=== PATIENT | female | born 1985 | race Caucasian/White ===

== ENCOUNTER 2018-06-19 10:20 | Day surgery (SDC) | payer MEDICAID, SELFPAY ==
--- NOTE | 2018-06-19 07:58 | W.PM.DSUDISC ---
Discharge Plan Disposition Patient Disposition: HOME Condition: Fair Discharge Details Reason For Visit: GERD Attending Provider: Camila Fisher Primary Care Provider: Diane Dunlap Home Meds and New Rx's Prescriptions: New sucralfate [Carafate] 1 gram tablet 1 gm PO Q6H Qty: 120 RF: 0 Continue venlafaxine 75 MG tablet extended release 24hr 75 mg PO DAILY RF: 0 etonogestrel [Nexplanon] 68 MG implant 68 mg SQ ONCE Qty: 1 RF: 0 multivitamin 1 EACH capsule 1 ea PO DAILY RF: 0 acetaminophen [Mapap Extra Strength] 500 MG tablet 2 tab PO PRN PRNRF: 0 trazodone 150 MG tablet 150 mg PO HS PRNRF: 0 Changed pantoprazole [Protonix] 40 MG tablet,delayed release (DR/EC) 40 mg PO BID Qty: 90 RF: 0 Discontinued alum-mag hydroxide-simeth [Maalox Maximum Strength] 355 ML suspension 15 ml PO Q2H PRN RF: 0 ranitidine HCl 300 MG tablet 300 mg PO HS Qty: 90 RF: 0 Discharge Instructions Instructions: Upper Endoscopy (DC), Diet for Stomach Ulcers and Gastritis (GEN), Gastritis (DC), Esophagitis (DC), How to Stop Smoking (DC) Additional Instructions: Findings: severe inflammation of the stomach and esophagus Follow up : 3-4 weeks Diet: low acid Medications: Stop Zantac Increase Protonix to 2 x a day Start Carafate 1 tab 4 x a day 1. Because there will be medication in your system for the next 24 hours, you may feel a little sleepy. Your coordination will be affected. Therefore: a. Do not drive or operate dangerous equipment for 24 hours. b. Do not drink alcohol beverages for 24 hours (not even beer). c. Plan to go home and rest for the day. 2. Generally there are no restrictions on your activity after a day or so has gone by, but you may feel a bit fatigued for a few days. 3 After you arrive home you may have a light meal and return to a normal diet as you can tolerate it without feeling sick to your stomach. 4. After surgery, you may feel pain or discomfort. This should be only transient, but if it persists please contact your doctor. 5. If there are any questions regarding the findings of your procedure, please feel free to contact your doctor. 6. If you are unable to contact your doctor with a problem, contact the h deysipital at [phone]. 7. Continue all your regular medications unless directed otherwise. I understand the above instructions and have no questions. Signature of Patient or Responsible Adult Escort Date/Time Name of Responsible Adult Escort Signature of Nurse Date/Time Activity:: Activity as Tolerated Diet:: low acid Discharge Orders Discharge Orders: Discharge Order (Routine); Ordered 06/19/18 Ordered By: Camila Fisher
--- NOTE | 2018-06-19 08:01 | PDOC.DSDIS_ITS ---
Discharge Plan Disposition Patient Disposition: HOME Condition: Fair Discharge Details Reason For Visit: GERD Attending Provider: Camila Fisher Primary Care Provider: Diane Dunlap Home Meds and New Rx's Prescriptions: New sucralfate [Carafate] 1 gram tablet 1 gm PO Q6H Qty: 120 RF: 0 Continue venlafaxine 75 MG tablet extended release 24hr 75 mg PO DAILY RF: 0 etonogestrel [Nexplanon] 68 MG implant 68 mg SQ ONCE Qty: 1 RF: 0 multivitamin 1 EACH capsule 1 ea PO DAILY RF: 0 acetaminophen [Mapap Extra Strength] 500 MG tablet 2 tab PO PRN PRNRF: 0 trazodone 150 MG tablet 150 mg PO HS PRNRF: 0 Changed pantoprazole [Protonix] 40 MG tablet,delayed release (DR/EC) 40 mg PO BID Qty: 90 RF: 0 Discontinued alum-mag hydroxide-simeth [Maalox Maximum Strength] 355 ML suspension 15 ml PO Q2H PRN RF: 0 ranitidine HCl 300 MG tablet 300 mg PO HS Qty: 90 RF: 0 Discharge Instructions Instructions: Upper Endoscopy (DC), Diet for Stomach Ulcers and Gastritis (GEN) , Gastritis (DC), Esophagitis (DC), How to Stop Smoking (DC) Additional Instructions: Findings: severe inflammation of the stomach and esophagus Follow up : 3-4 weeks Diet: low acid Medications: Stop Zantac Increase Protonix to 2 x a day Start Carafate 1 tab 4 x a day 1. Because there will be medication in your system for the next 24 hours, you may feel a little sleepy. Your coordination will be affected. Therefore: a. Do not drive or operate dangerous equipment for 24 hours. b. Do not drink alcohol beverages for 24 hours (not even beer). c. Plan to go home and rest for the day. 2. Generally there are no restrictions on your activity after a day or so has gone by, but you may feel a bit fatigued for a few days. 3 After you arrive home you may have a light meal and return to a normal diet as you can tolerate it without feeling sick to your stomach. 4. After surgery, you may feel pain or discomfort. This should be only transient , but if it persists please contact your doctor. 5. If there are any questions regarding the findings of your procedure, please feel free to contact your doctor. 6. If you are unable to contact your doctor with a problem, contact the h deysipital at [phone]. 7. Continue all your regular medications unless directed otherwise. I understand the above instructions and have no questions. Signature of Patient or Responsible Adult Escort Date/Time Name of Responsible Adult Escort Signature of Nurse Date/Time Activity:: Activity as Tolerated Diet:: low acid Discharge Orders Discharge Orders: Discharge Order (Routine); Ordered 06/19/18 Ordered By: Camila Fisher
[2018-06-19 10:43] VITALS: BP 108/66; PULSE 84; RESP 16; TEMP 37.3; O2SAT 96
[2018-06-19] MEDS: Lactated Ringers 1,000 ML 80 ML IV (11:00)
--- NOTE | 2018-06-19 11:55 | STOM_PTH ---
PATIENT: Guera Lorenz LOC: [facility] U#:[id number] AGE/SX: 33/F ROOM: RE06/19/[address]: Camila Fisher MD : 1985 BED: DIS: 06/19/2018 SPEC #: [id number] RECD: 06/19/18 13:14 STATUS: [facility] #: [id number] ELOY: 06/19/18 11:[address]: Camila Fisher DEPT: Surgical Specimen RECD BY: Maria A Doss ENTERED: 06/19/18 13:15 SP TYPE: STOMACH OTHR DR: Diane Dunlap Tissues: 1 - BIOPSY BOWEL 2 - STOMACH BIOPSY 3 - ESOPHAGUS BIOPSY Procedures: GROSS AND MICRO LEVEL 4 IMMUNOPEROXIDASE STAIN Comments: [id number]
[2018-06-19 12:40] VITALS: BP 121/84; PULSE 92; RESP 16; TEMP 37.4; O2SAT 94
--- NOTE | 2018-06-19 13:18 | ROE_ITS ---
REPORT OF OPERATIVE PROCEDURE DATE OF SURGERY May 19, 2018 PREOPERATIVE DIAGNOSES Epigastric pain. Gastroesophageal reflux disease. POSTOPERATIVE DIAGNOSES Severe esophagitis and gastritis. PROCEDURES PERFORMED EGD with biopsies. SEDATION MAC. ANESTHESIA PROVIDER Damien Sharif CRNA SURGEON Paul Fisher M.D. TOOLROOM HELPER None. ESTIMATED BLOOD LOSS Less than 5 cc. SPECIMENS 1. Duodenal biopsies, rule out celiac. 2. Antral ulcer biopsy. 3. H. pylori CLOtest. 4. GE junction biopsies. PREP None. COMPLICATIONS No immediate complications. INDICATIONS Ms. Kim is a 33-year-old with a history of GERD, who has been having increased symptoms on her ome prazole. She was seen in the Emergency Department and switched over [facility] Pro[facility]ix [facility]. She continues to have to take Maalox. The risks, benefits and complications were reviewed her a nd she wished to proceed. No guarantees were given or implied. DESCRIPTION OF PROCEDURES After informed consent was obtained, the patient was taken to the Endoscopy Suite and placed in the l eft decubitus position. Monitors were applied and a time-out was done. The patient's name, date of b irth, procedure type, allergies to medications and metal in her body were all reviewed. A bite-block was placed and the patient was sedated. Once sedated and comfortable, the gastroscope was introduced and advanced through the oropharynx, into the esophagus. The proximal and mid esophagus were normal. In the distal esophagus there was inflammation at the GE junction, which was at 25 centimeters. Th ere was a small hiatal hernia. The scope was advanced through the hernia into the antrum and through the pylorus into the third portion of the duodenum. The duodenum looked fairly normal, biopsies were done to rule out celiac sprue. The scope was retracted back into the stomach and biopsies of the sto mach were done for CLOtest. A couple of small ulcerations were noted and these were also biopsied and sent separately. The scope was retroflexed. The cardia and fundus were normal. The scope was straigh tened and pulled back into the esophagus; biopsies of the GE junction were done. The patient was coug valerie due to her smoking, which made the biopsies at the GE junction quite difficult, but I think I di d get a couple of biopsies. The scope was removed and the patient was woken up and taken back to [facility] in stable condition. Followup in three to four weeks in the office. I will have her take Protonix b.i.d. Stop Mylanta and Zantac and start Carafate q.i.d.
== END 2018-06-19 13:13 | disposition home or self-care (01) ==
LOC: SUR 10:21
PROVIDERS: PCP Nurse Practitioner Family; Visit Provider Surgery
PROC: 0DJ68ZZ Inspection of Stomach, Via Natural or Artificial Opening Endoscopic (ICD-10-PCS; CPT 43235; principal; 2018-06-19 12:00)
DX: R10.13 Epigastric pain (principal); K21.0 Gastro-esophageal reflux disease with esophagitis; K29.70 Gastritis, unspecified, without bleeding; K27.9 Peptic ulcer, site unspecified, unspecified as acute or chronic, without hemorrhage or perforation
CPT/HCPCS: 43239; 88305; 87081; 88361

== ENCOUNTER 2018-07-10 09:23 | Outpatient (CLI) | payer MEDICAID, SELFPAY ==
--- NOTE | 2018-07-10 08:39 | DI.RAD_ITS ---
SYMPTOM/DIAGNOSIS: COUGH, R05, URI, HEMOPTYSIS, FAMILY H/O PNEUMONIA PA AND LATERAL CHEST: Comparison is made with 11/09/17. Heart size and pulmonary vasculature are within normal limits. There are again seen linear infiltrates in the lung bases which appear stable and consistent with scarring. On the lateral view, there are increased infiltrates projected over the anterior heart suggestive of a right middle lobe infiltrate. This may represent atelectasis or pneumonia. No effusions or pneumothoraces are identified. Mild degenerative changes are seen in the spine. IMPRESSION: Right middle lobe infiltrate. This may represent atelectasis or pneumonia.
== END 2018-07-10 09:43 ==
PROVIDERS: PCP Nurse Practitioner Family; Visit Provider Family Medicine
DX: R05 Cough (principal); J06.9 Acute upper respiratory infection, unspecified; R04.2 Hemoptysis
CPT/HCPCS: 71046

== ENCOUNTER 2018-07-28 06:42 | Outpatient (CLI) | payer MEDICAID, SELFPAY ==
[2018-07-28 10:51] LABS: Cholesterol 264 mg/dL (50-200); Glucose 94 mg/dL (70-100); HDL Cholesterol 43 mg/dL (40-60); LDL CHOLESTEROL 174 mg/dL (<100); TSH 3.44 uIU/mL (0.358-3.74); Triglyceride 403 mg/dL (30-150)
== END 2018-07-28 07:02 ==
PROVIDERS: PCP Nurse Practitioner Family; Visit Provider Nurse Practitioner Family
DX: R07.89 Other chest pain (principal); E78.1 Pure hyperglyceridemia
CPT/HCPCS: 36415; 80061; 82947; 83721; 84443

== ENCOUNTER 2019-03-16 15:05 | Outpatient (REF) | payer MEDICAID, SELFPAY ==
--- NOTE | 2019-03-16 14:00 | PAPFT_PTH ---
PATIENT: Guera Lorenz LOC: [facility] U#:[id number] AGE/SX: 34/F ROOM: RE03/16/[address]: NILES Daley : 1985 BED: DIS: 03/16/2019 SPEC #: [id number] RECD: 03/16/19 17:40 STATUS: [facility] #: [id number] ELOY: 03/16/19 14:[address]: Rose Marie Leiva DEPT: [facility] Cytology RECD BY: Maria A Doss ENTERED: 03/16/19 17:40 SP TYPE: PAPFT OTHR DR: Diane Dunlap Tissues: 1 - CX/ENDOCX FOR PAP SMEARS Procedures: PAP THIN PREP/UVM Screening HPV DNA PROBE Comments: [id number]
== END 2019-03-16 15:25 ==
LOC: LBN 15:05
PROVIDERS: PCP Nurse Practitioner Family; Visit Provider Nurse Practitioner Family
DX: Z12.4 Encounter for screening for malignant neoplasm of cervix (principal); Z11.51 Encounter for screening for human papillomavirus (HPV)
CPT/HCPCS: 88142; 87624

== ENCOUNTER 2019-04-03 17:49 | Outpatient (REF) | payer MEDICAID, SELFPAY ==
--- NOTE | 2019-04-03 11:40 | ENDO_PTH ---
PATIENT: Guera Lorenz LOC: [facility] U#:[id number] AGE/SX: 34/F ROOM: RE04/03/[address]: Maycol Alvares MD : 1985 BED: DIS: 04/03/2019 SPEC #: [id number] RECD: 04/06/19 12:25 STATUS: [facility] REQ #: [id number] ELOY: 04/03/19 11:[address]: Maycol Alvares DEPT: Surgical Specimen RECD BY: Lindsay Freedman ENTERED: 04/06/19 12:26 SP TYPE: Endo OTHR DR: LUKAS DaleyP Tissues: 1 - ENDOCERVICAL BX/CURRETTE Procedures: GROSS AND MICRO LEVEL 4 Comments: [id number]
== END 2019-04-03 18:09 ==
LOC: LBN 17:49
PROVIDERS: PCP Nurse Practitioner Family; Visit Provider Obstetrics & Gynecology
DX: N88.8 Other specified noninflammatory disorders of cervix uteri (principal); R87.610 Atypical squamous cells of undetermined significance on cytologic smear of cervix (ASC-US)
CPT/HCPCS: 88305

== ENCOUNTER 2019-10-17 13:38 | Emergency (ER) | payer MEDICAID, SELFPAY ==
[2019-10-17 13:41] VITALS: BP 132/74; PULSE 107; RESP 16; TEMP 36.3; O2SAT 99
--- NOTE | 2019-10-17 14:01 | ED.GENADUL_ITS ---
Discharge Plan Disposition Patient Disposition: HOME Condition: Stable Discharge Details Chief Complaint: Sorethroat Clinical Impression: Acute streptococcal pharyngitis Primary Care Provider: Diane Dunlap ED Provider: Destinee Wong Home Meds and New Rx's Prescriptions: Continued alum-mag hydroxide-simeth [Maalox Advanced] 200-200-20 mg/5 mL suspension 15 ml PO DAILY PRNRF: 0 famotidine [Pepcid] 20 mg tablet 20 mg PO DAILY PRNRF: 0 gabapentin 600 mg tablet 600 mg PO DAILY Qty: 28 RF: 0 Nexplanon 68 MG implant 68 mg SQ ONCE Qty: 1 RF: 0 multivitamin 1 EACH capsule 1 ea PO DAILY RF: 0 acetaminophen [Mapap Extra Strength] 500 MG tablet 2 tab PO PRN PRNRF: 0 ibuprofen 600 mg Tablet 600 mg PO Q6H PRNRF: 0 Discharge Instructions Instructions: Pharyngitis (ED) Additional Instructions: Alternate tylenol and motrin as needed and directed for pain. Drink plenty of fluids and get plenty of rest. Follow-up with your primary care doctor in 1 week. Return to the emergency department with any worsening or new concerning symptoms. Stand Alone Forms: Work Release Discharge Data Discharge Physician: Destinee Wong Medical Decision Making 34-year-old female presents with sore throat since last night. She treated herself with cefuroxime 3 weeks ago for suspected strep throat. Posterior pharynx erythematous with moderate tonsillar edema with minimal exudates. Uvula moderately edematous but midline. No peritonsillar mass. No trismus, drooling, submandibular swelling or lymphadenopathy. Rapid strep positive. Patient offered Bicillin injection and she is agreeable. Dose of Decadron given for pain and swelling. Advised on the importance of rest, fluids and symptomatic treatment. Advised to follow up with the primary care doctor for re-evaluation. Usual and customary return precautions given prior to discharge. Medical Records Medical records reviewed: Yes I reviewed the patient's medical records. HPI General Mode of arrival: ambulatory . Date/Time Provider Initiated Documentation: 10/17/19 13:51 . Limitations to Documentation: no limitations . Information obtained by: patient . History of Present Illness 34 year old F presents to the emergency department with the chief complaint of Sore throat, Patient started experiencing this day(s) (1) and it has been constant. No relieving factors improve symptom(s), No exacerbating factors reported . Patient notes denies chest pain, cough, diaphoresis, fever/chills, headaches, loss of appetite, malaise, nausea/vomiting, rash, seizure, shortness of breath, syncope and weakness. Patient did receive the following treatments prior to arrival, none Related Data Home Medications Medication Instructions Recorded Confirmed acetaminophen [Mapap Extra 2 tab PO PRN PRN 09/22/16 10/17/19 Strength] multivitamin 1 ea PO DAILY 11/09/17 10/17/19 Nexplanon 68 mg SQ ONCE #1 implant 03/07/18 10/17/19 aluminum-mag hydroxide-simethicone 15 ml PO DAILY PRN ml 09/17/18 10/17/19 200 mg-200 mg-20 mg/5 mL oral susp famotidine 20 mg tablet 20 mg PO DAILY PRN 11/18/18 10/17/19 gabapentin 600 mg tablet 600 mg PO DAILY #28 tab 10/14/19 10/17/19 ibuprofen 600 mg PO Q6H PRN 10/17/19 10/17/19 Previous Rx's Medication Instructions Recorded gabapentin 600 mg tablet 600 mg PO DAILY #28 tab 10/14/19 Allergies Allergy/AdvReac Type Severity Reaction Status Date / Time indomethacin AdvReac Mild Per pt. Verified 10/17/19 13:48 medication makes her loopy. promethazine HCl AdvReac Mild MAKES PT. Verified 10/17/19 13:48 [From Phenergan] FORGETFUL/confusion General Stated Complaint: Sorethroat FLORECITA: 4 Review of Systems All systems reviewed & are unremarkable except as noted in HPI and below Constitutional Constitutional: Reports as per HPI, Denies chills and Denies fever(s) Eyes Eyes: Denies blurry vision ENT Ears, Nose, Mouth, and Throat: Denies dizziness, Reports sore throat and Denies throat swelling Cardiovascular Cardiovascular: Denies chest pain and Denies dyspnea Respiratory Respiratory: Denies cough and Denies dyspnea Gastrointestinal Gastrointestinal: Denies abdominal pain, Denies diarrhea and Denies vomiting Genitourinary Genitourinary: Denies hematuria and Denies dysuria Musculoskeletal Musculoskeletal: Denies back pain and Denies numbness Integumentary/Breasts Skin/Breast: Denies lesions and Denies rash Neurologic Neurologic: Denies dizziness, Denies focal weakness and Denies numbness Allergic/Immunologic Allergic/Immunologic: Denies throat swelling [facility] Social History Smoking/Tobacco Use Status: Current every day Tobacco Type: cigarettes Alcohol Intake: never Drug use: Never Substance use type: does not use Pets and animals: Yes Pets and animals: dog(s) Do you feel safe at home: Yes Do you feel safe in your relationship?: Yes History History 1 Para 1 Hx # Term Pregnancies Multiple births Hx # Pregnancies Ectopic pregnancies AB induced Hx Number of Living Children AB spontaneous Exam Const General: cooperative, healthy appearing and no acute distress HENMT Head: normal to inspection Ears: hearing grossly normal bilaterally, external ears normal and TM's normal bilaterally General nose exam: external nose normal Mouth: oral mucosae normal Throat: uvula midline, no peritonsillar masses and posterior oropharynx abnormal edema (Moderate), erythema (Moderate) and exudates (Right-sided) Eyes General: appearance normal, both eyes and all related structures Neck Neck: normal visual inspection, no lymphadenopathy, no meningeal signs, trachea midline and No submandibular swelling Resp Effort & Inspection: normal respiratory effort and able to speak in complete sentences Cardio Rate: regular rate Skin General skin exam: no rashes or lesions noted Neuro General: alert, awake and oriented x3 Motor: muscle tone normal throughout Extrem General: normal to inspection and full ROM Psych Appearance: grossly normal Affect: normal affect Course Vital Signs Vital signs: Vital Signs Temperature 97.3 F L 10/17/19 13:41 Pulse 107 H 10/17/19 13:41 Respiratory Rate 16 10/17/19 13:41 Blood Pressure 132/74 10/17/19 13:41 Pulse Oximetry 99 10/17/19 13:41 Temperature 97.3 F L 10/17/19 13:41 Temperature Source Skin 10/17/19 13:41 Pulse 107 H 10/17/19 13:41 Respiratory Rate 16 10/17/19 13:41 Respiratory Effort Non-Labored 10/17/19 13:52 Blood Pressure 132/74 10/17/19 13:41 Blood Pressure Position Sitting 10/17/19 13:41 Pulse Oximetry 99 10/17/19 13:41 Oxygen Delivery Method Room Air 10/17/19 13:41 Oxygen Flow Rate 0 10/17/19 13:41 Pain Level 8 10/17/19 13:41 Lab/Test Results Lab/Test Results: POC Strep Test-RADHA(Rapid) Start: 10/17/19 13:48 Freq: Status: Active Protocol: Document 10/17/19 13:58 CF (Rec: 10/17/19 13:59 [id number]) Strep test-RADHA(Rapid)-POC POC-Strep test-RADHA (Rapid) Positive POC-Strep test-RADHA (Rapid) Positive
[2019-10-17] MEDS: Dexamethasone 10 MG/ML VIAL PO (14:21)
== END 2019-10-17 14:25 | disposition home or self-care (01) ==
PROVIDERS: Emergency Provider Physician Assistant; PCP Nurse Practitioner Family
DX: J02.9 Acute pharyngitis, unspecified (principal)
CPT/HCPCS: 96372; 99284; 99283; J0561; J1100

== ENCOUNTER 2020-01-04 13:34 | Outpatient (CLI) | payer MEDICAID, SELFPAY ==
[2020-01-06 15:25] LABS: SARS-CoV-2 RNA Undetected (Undetected); SARS-CoV-2 Specimen Source Nasopharynx
== END 2020-01-04 13:54 ==
PROVIDERS: PCP Nurse Practitioner Family; Visit Provider Nurse Practitioner Family
DX: Z20.828 Contact with and (suspected) exposure to other viral communicable diseases (principal); Z11.59 Encounter for screening for other viral diseases; R05 Cough
CPT/HCPCS: U0003

== ENCOUNTER 2020-02-08 15:48 | Outpatient (REF) | payer MEDICAID, SELFPAY ==
[2020-02-09 18:31] LABS: COVID-19 RT-PCR UVMMC Result Negative (Negative)
== END 2020-02-08 16:08 ==
LOC: NCHCN 15:48
PROVIDERS: PCP Nurse Practitioner Family; Visit Provider Nurse Practitioner Family
DX: J02.9 Acute pharyngitis, unspecified (principal); Z20.828 Contact with and (suspected) exposure to other viral communicable diseases
CPT/HCPCS: U0003; 87070

== ENCOUNTER 2020-02-20 15:59 | Emergency (ER) | payer MEDICAID, SELFPAY ==
[2020-02-20 16:03] VITALS: BP 147/100; PULSE 110; RESP 18; TEMP 36.6; O2SAT 98
--- NOTE | 2020-02-20 16:57 | ED.GENADUL_ITS ---
Discharge Plan Disposition Patient Disposition: HOME Condition: Stable Discharge Details Chief Complaint: Cellulitis Clinical Impression: Cellulitis, Cat scratch Primary Care Provider: Diane Dunlap ED Provider: Abby Brewster Home Meds and New Rx's Prescriptions: New sulfamethoxazole-trimethoprim [Bactrim DS] 800-160 mg tablet 1 tab PO BID Qty: 20 RF: 0 cephalexin [Keflex] 500 mg capsule 500 mg PO QID Qty: 40 RF: 0 Continued Nexplanon 68 mg implant 1 implant SBD ONCE Qty: 1 RF: 0 gabapentin 600 mg tablet 600 mg PO DIRECTED Qty: 60 RF: 0 multivitamin 1 EACH capsule 1 ea PO DAILY RF: 0 Discharge Instructions Instructions: Cellulitis (ED) Additional Instructions: Elevate arm for swelling. Use warm compresses. Antibiotics as prescribed. Please plan for ultrasound on Saturday for follow-up. Pending ultrasound results begin daily aspirin 81 mg. Observe for any fevers, chills, increasing redness or swelling or for any worsening pain. Have reevaluation for worsening of your symptoms immediately. Call PCP for recheck in the middle of next week. Expect improvement in the next 2 to 3 days. Return for any worsening, concerns or alarming symptoms sooner if needed as discussed Medical Decision Making This is a 35-year-old patient presenting for concerns of swelling which developed overnight in the right AC. Patient reports mild redness. Patient is nontoxic-appearing and does denies any infectious symptoms at this time. Patient is concerned with history of IV drug use resulting in a necrotic abscess requiring surgical drainage 5 years ago. Patient denies any IV drug use in the last 3 years. Patient concerned if area of her old abscess is developing a new infection. Patient also reports 5 days ago a cat scratch to the dorsal right hand which she questions if this is involved in the developing swelling in her arm. Patient has no significant distal swelling noted of the arm however DVT remains in the differential. Patient has no focal lymph node involvement noted on exam. Patient has no obvious fluctuation in the right AC area but does have mild erythema present. Vital signs reviewed. Patient noted to be hypertensive however she does report this is typical when arriving to the emergency room. She does report feeling anxious regarding being in the emergency room. While evaluating patient palpated pulse which was not notably tachycardic. Again patient does not appear ill, afebrile. reviewed patient's previous surgical notes and culture. Abscess Culture Final 12/09/14-08 Day 1 Result ISOLATES BELOW DAY 1 GROWTH MODERATE GROWTH ISOLATE 1 APPEARANCE GRAM POSITIVE TERRA ISOLATE 1 ACTION SUSCEPTIBILITY TO FOLLOW Organism 1 STAPHYLOCOCCUS AUREUS GROWTH MODERATE GROWTH Stap [place] RESULT Ciprofloxacin S Gentamicin S Trimethoprim/Sulfamethoxazole S Clindamycin S Erythromycin S Oxacillin S Tetracycline S Vancomycin S Unable to get ultrasound at this time. Will order ultrasound for Saturday. Plan to identify for developing abscess as well as DVT in the right arm. Patient agrees with this plan of care. We did discuss prophylactic anticoagulation although I have a low suspicion for DVT will plan to use aspirin daily, patient's preference is to avoid anticoagulants orally at this time unless ultrasound diagnostic of DVT. Regarding the possibility of developing abscess we will plan to use both Bactrim and Keflex for broad-spectrum coverage based on her previous culture and concern of possible cat scratch. Patient raises plan of care. Did perform bedside ultrasound with Dr. Soares revealed mild developing fluid but no focal abscess requiring drainage at this time. Elevation of arm, antibiotic use, warm compresses and daily aspirin recommended. Patient agrees with this plan of care. Precautions of infection and worsening were discussed. Recommended ultrasound on Saturday. Patient agrees this plan of care. Recommended return for worsening. Patient agrees. Again patient is nontoxic-appearing. The patient was stable and requested discharge. Prior to discharge, my usual and customary return precautions were reviewed with the patient - this included follow-up instructions and reasons to return to the Emergency Department if conditions worsens, does not improve as expected, or other new concerns arise. HPI General Date/Time Provider Initiated Documentation: 02/20/20 16:00 . HPI Narrative: This is a 35-year-old patient presenting to the emergency room with complaints of right arm swelling. Patient reports onset overnight mild swelling and redness to the right AC. Patient is reporting a history of IV drug use has a large surgical scar noted from a previous necrotic abscess which required surgical intervention. Patient reports this was 5 years ago. Patient reports she has not used IV drugs in 3 years. Patient denies any fever, chills or ill feeling. Patient was also concerned as she did have a cat scratch to the dorsal aspect of her right hand, vaccinated cat. Patient reports her tetanus is up-to-date. Patient reports cat scratch was 5 days ago. Patient concerned with the possibility of cat scratch infection or development of new infection in the right AC. Patient denies any lower arm swelling. Patient reports very mild discomfort associated. And again denies ill feeling. Patient reports full range of motion of the arm. Denies numbness, tingling or weakness. Denies any diaphoresis, sweats, headache, dizziness. Denies any nausea or vomiting. Denies abdominal pain. Denies any joint swelling. Related Data Home Medications Medication Instructions Recorded Confirmed multivitamin 1 ea PO DAILY 11/09/17 02/20/20 etonogestrel 68 mg subdermal 1 implant SBD ONCE #1 each 02/03/20 02/20/20 implant gabapentin 600 mg tablet 600 mg PO DIRECTED #60 tab 02/15/20 02/20/20 cephalexin [Keflex] 500 mg PO QID #40 cap 02/20/20 sulfamethoxazole-trimethoprim 1 tab PO BID #20 tab 02/20/20 [Bactrim DS] Previous Rx's Medication Instructions Recorded etonogestrel 68 mg subdermal 1 implant SBD ONCE #1 each 02/03/20 implant gabapentin 600 mg tablet 600 mg PO DIRECTED #60 tab 02/15/20 cephalexin [Keflex] 500 mg PO QID #40 cap 02/20/20 sulfamethoxazole-trimethoprim 1 tab PO BID #20 tab 02/20/20 [Bactrim DS] Allergies Allergy/AdvReac Type Severity Reaction Status Date / Time indomethacin AdvReac Mild Per pt. Verified 02/03/20 15:47 medication makes her loopy. promethazine HCl AdvReac Mild MAKES PT. Verified 02/03/20 15:47 [From Phenergan] FORGETFUL/confusion General Stated Complaint: Cellulitis FLORECITA: 3 Review of Systems All systems reviewed & are unremarkable except as noted in HPI and below PFSH Medical History Adult BMI > 30 (Resolved) Anxiety and depression (Acute) Atypical chest pain (Resolved) Bicornate uterus (Chronic) Blood glucose elevated (Resolved) Dizziness (Resolved) Fibrocystic breast (Acute) Gastritis (Resolved) GERD (gastroesophageal reflux disease) (Acute) HLD (hyperlipidemia) (Acute) HPV (human papilloma virus) infection (Resolved) genital warts Hx of abnormal cervical Pap smear (Acute) Hypertriglyceridemia (Resolved) Insomnia (Resolved) Migraines (Acute) Mood disorder (Acute) Myalgia (Resolved) Nexplanon in place (Acute) 02/03/2020 previous device removed new device inserted. Obesity (Acute) Pilonidal cyst (Resolved) Sleep apnea (Acute) Sore throat (Resolved) Substance abuse (Resolved) Opiates & cocaine; in remission since 2013 Tobacco use disorder (Acute) Social History Smoking/Tobacco Use Status: Current every day Alcohol Intake: never Drug use: Never Substance use type: does not use Pets and animals: Yes Pets and animals: dog(s) Do you feel safe at home: Yes Do you feel safe in your relationship?: Yes History History 1 Para 1 Hx # Term Pregnancies Multiple births Hx # Pregnancies Ectopic pregnancies AB induced Hx Number of Living Children AB spontaneous Exam Narrative Exam Narrative: CONST: Healthy appearing patient, in no acute distress. Well hydrated. Alert and oriented. EYES: General normal appearance. Alignment normal. Eyelids normal. Conjunctiva normal. Sclera normal. NECK: Normal visual inspection. FROM. No lymphadenopathy. Trachea midline. No Midline tenderness. CHEST: Normal insepection of the chest. RESP: Normal respiratory effort. Speaking full sentences. No cough. No wheezing. No retractions. CARDIO: No JVD. MUSCULOSKELETAL: Normal Gait. FROM of all extremities. Distal neurovascularly intact. Sensation intact distally. Right arm: Patient has no obvious upper arm swelling or notable lymphangitis of the upper arm. At the right AC patient has a large surgical scar noted, mild fullness just distal to the right AC, no focal fluctuation. Patient has vague developing erythema on the periphery of her surgical scar. Mild warmth. Patient has minimal tenderness with palpation. Full range of motion of the elbow and forearm. Full range of motion of the wrist. No distal swelling noted in the distal forearm wrist or hand. There are multiple scratches noted in the dorsal aspect of the right hand which appear uninfected. Pulse intact. Distal neurovascularly intact SKIN: Normal. Dry. No rashes. See above note NEURO: Alert and awake. Speech clear. Lymph: No noted axillary lymph nodes. No cervical lymphadenopathy present. PSYCH: Normal affect. Cooperative. Course Vital Signs Vital signs: Vital Signs Temperature 36.6 C 02/20/20 16:03 Pulse 110 H 02/20/20 16:03 Respiratory Rate 18 02/20/20 16:03 Blood Pressure 147/100 H 02/20/20 16:03 Pulse Oximetry 98 02/20/20 16:03 Temperature 36.6 C 02/20/20 16:03 Pulse 110 H 02/20/20 16:03 Respiratory Rate 18 02/20/20 16:03 Respiratory Effort 02/20/20 16:08 Blood Pressure 147/100 H 02/20/20 16:03 Blood Pressure Position Sitting 02/20/20 16:03 Pulse Oximetry 98 02/20/20 16:03 Oxygen Delivery Method Room Air 02/20/20 16:03 Oxygen Flow Rate 0 02/20/20 16:03
[2020-02-20] MEDS: Cephalexin 500 MG CAP PO (16:59)
[2020-02-20] MEDS: Sulfameth/Trimeth DS TAB 1 TAB PO (17:00)
== END 2020-02-20 17:05 | disposition home or self-care (01) ==
PROVIDERS: Emergency Provider Physician Assistant; PCP Nurse Practitioner Family
DX: L03.113 Cellulitis of right upper limb (principal); S60.511A Abrasion of right hand, initial encounter; W55.03XA Scratched by cat, initial encounter
CPT/HCPCS: 99283

== ENCOUNTER 2020-02-22 08:44 | Outpatient (CLI) | payer MEDICAID, SELFPAY ==
--- NOTE | 2020-02-22 | DI.US_ITS ---
EXAM: US UPPER EXTREMITY VENOUS RT CLINICAL HISTORY: CELLULITIS, ? DVT OR ABSCESS, H/O CAT SCRATCH 5 DAYS AGO, H/O PREVIOUS. TECHNIQUE: Ultrasound examination of the right upper extremity venous system(s) is performed using g rayscale, color-flow, and spectral Doppler analysis. COMPARISON: No exams were available for comparison FINDINGS: The right internal jugular, axillary, basilic, brachial and visualized portions of the subclavian, ra dial, and ulnar veins are patent without evidence of thrombosis. There is superficial thrombus seen in the cephalic vein. There is a small amount of subcutaneous fluid in the proximal forearm. This m ay represent edema. No focal fluid collection is seen to suggest an abscess. IMPRESSION: 1. No DVT. 2. Superficial thrombophlebitis. 3. No sonographic evidence of an abscess. DATA REPOSITORY:
== END 2020-02-22 09:04 ==
PROVIDERS: PCP Nurse Practitioner Family; Visit Provider Physician Assistant
DX: L03.113 Cellulitis of right upper limb (principal); I82.611 Acute embolism and thrombosis of superficial veins of right upper extremity; R60.0 Localized edema
CPT/HCPCS: 93971

== ENCOUNTER 2020-02-22 14:52 | Emergency (ER) | payer MEDICAID, SELFPAY ==
[2020-02-22 14:56] VITALS: BP 118/84; PULSE 98; RESP 18; TEMP 36.6; O2SAT 100
[2020-02-22 15:01] VITALS: RESP 18
--- NOTE | 2020-02-22 15:36 | ED.GENADUL_ITS ---
Discharge Plan Disposition Patient Disposition: HOME Discharge Details Chief Complaint: GenMedical Clinical Impression: Acute cephalic vein thrombosis Primary Care Provider: Diane Dunlap ED Provider: Ton Tran Home Meds and New Rx's Prescriptions: New Eliquis DVT-PE Treat 30D Start 5 mg (74 tabs) tablets,dose pack See Rx Instructions .ROUTE .COMPLEX Qty: 74 RF: 0 No Action Nexplanon 68 mg implant 1 implant SBD ONCE Qty: 1 RF: 0 gabapentin 600 mg tablet 600 mg PO DIRECTED Qty: 60 RF: 0 multivitamin 1 EACH capsule 1 ea PO DAILY RF: 0 sulfamethoxazole-trimethoprim [Bactrim DS] 800-160 mg tablet 1 tab PO BID Qty: 20 RF: 0 cephalexin [Keflex] 500 mg capsule 500 mg PO QID Qty: 40 RF: 0 Discharge Instructions Instructions: Venous Thromboembolism (ED) Additional Instructions: Eliquis as directed. Please watch for new or worsening symptoms and return to the ER for any concerns. We have placed you on the care management list to help expedite your primary care follow-up through your primary care provider. I do recommend reaching out to their office tomorrow for prompt outpatient reevaluation. Discharge Data Discharge Date/Time-TO BE ENTERED AT DEPARTURE: 02/22/20 16:05 Medical Decision Making <SILVIANO Conner - Last Filed: 02/23/20 18:07> I discussed the case with Dr. Maher. Per current recommendations, superficial thrombophlebitis which is greater than 5 cm does require anticoagulation. I had a long discussion with patient regarding anticoagulation options, she would prefer Eliquis. I will initiate a starter pack for her and we discussed the importance of prompt outpatient follow-up. She will continue taking her antibiotics however there are no signs of current cellulitis. Patient has additional questions or concerns and is comfortable discharge. Medical Records Medical records reviewed: Yes I reviewed the patient's medical records. Lab Data Lab results reviewed: Yes I reviewed the patient's lab results. Lab results narrative: Laboratory Tests Range/Units 02/22/20 02/22/20 02/22/20 16:00 16:00 16:00 WBC (4.4-10.8) k/cumm 9.25 RBC (4.00-5.20) m/cumm 4.58 Hgb (12.0-15.5) g/dL 14.4 Hct (36.0-46.0) % 41.0 MCV (80-95) fL 89.5 MCH (27.0-33.0) pg 31.4 MCHC (32.0-36.0) g/dL 35.1 RDW (11.7-14.6) % 12.8 Plt Count (130-400) x1000/uL 273 MPV (8.0-11.0) fL 9.3 Immature Gran % % 1.2 Neutrophils % 52.5 Lymphocytes % 36.9 Monocytes % 7.0 Eosinophils % 2.3 Basophils % 0.1 Absolute Neutrophils (1.2-6.7) k/cumm 4.86 Absolute Lymphocytes (1.2-3.4) k/cumm 3.41 H Absolute Monocytes (0.11-0.7) k/cumm 0.65 Absolute Eosinophils (0.0-0.7) k/cumm 0.21 Absolute Basophils (0.0-0.2) k/cumm 0.01 PT (9.3-11.0) sec 9.0 L INR (0.9-1.1) 0.9 APTT (21.0-31.4) sec 25.8 Sodium (136-145) mmol/L 136 Potassium (3.5-5.1) mmol/L 4.3 Chloride (98-107) mmol/L 104 Carbon Dioxide (21.0-32.0) mmol/L 25.4 Anion Gap (3-11) mmol/L 6.6 BUN (7-18) mg/dL 14 Creatinine (0.55-1.02) mg/dL 0.90 Estimated GFR/1.73 m2 (mL/min/1.73m2) >= 60.00 Glucose (74-106) mg/dL 92 Calcium (8.5-10.1) mg/dL 9.0 Total Bilirubin (0.2-1.0) mg/dL 0.2 AST (15-37) U/L 12 L ALT (14-59) U/L 28 Alkaline Phosphatase (46-116) U/L 55 Total Protein (6.4-8.2) g/dL 6.9 Albumin (3.4-5.0) g/dL 3.7 <Vicki Maher MD - Last Filed: 02/23/20 07:38> I, Vicki Maher, have seen and examined the patient and agree with the history and physical as per the PA. Please refer to their note. Concern for superficial thrombophlebitis extending greater than 5 cm, per current recommendations plan for anticoagulation with Eliquis. Patient continues to take antibiotics for cellulitis. No evidence of active/resistant infection on exam. Exam/history is not consistent with pulmonary embolism, sepsis, necrotizing fasciitis, abscess, other acute emergent life-threatening process. I had a lengthy discussion with Patient regarding return to emergency department precautions, home care, and importance of outpatient follow-up. Pt ve rbalizes understanding of the plan and is amenable. Patient discharged to home with clear plan for outpatient follow-up. All questions were answered. Disposition decision was made weighing the risks and benefits of hospitalization versus outpatient treatment, the risk for further decompensation, and the patient's wishes. Medical Records Medical records reviewed: Yes I reviewed the patient's medical records. Lab Data Lab results reviewed: Yes I reviewed the patient's lab results. HPI <SILVIANO Conner - Last Filed: 02/23/20 18:07> General Mode of arrival: ambulatory . Date/Time Provider Initiated Documentation: 02/22/20 15:19 . Limitations to Documentation: no limitations . Information obtained by: patient . HPI Narrative: 35-year-old female who is presenting to the ER today for results of her ultrasound. She was evaluated over the weekend for right arm swelling and discomfort, was placed on antibiotic for possible cellulitis, and set up for outpatient ultrasound today. She reports her arm actually feels better than it did, there is no redness, and only a small area of firmness. Mild discomfort. No numbness, tingling, weakness, chest pain, shortness of breath or fever. She reports that she is a former IV drug user but has been clean for 3 years. She denies any history of DVT or PE to me. I discussed the findings with radiology, ultrasound reveals no DVT however there is superficial thrombophlebitis of the cephalic vein measuring greater than 5 cm. Related Data Home Medications Medication Instructions Recorded Confirmed multivitamin 1 ea PO DAILY 11/09/17 02/22/20 etonogestrel 68 mg subdermal 1 implant SBD ONCE #1 each 02/03/20 02/22/20 implant gabapentin 600 mg tablet 600 mg PO DIRECTED #60 tab 02/15/20 02/22/20 cephalexin [Keflex] 500 mg PO QID #40 cap 02/20/20 02/22/20 sulfamethoxazole-trimethoprim 1 tab PO BID #20 tab 02/20/20 02/22/20 [Bactrim DS] apixaban [Eliquis DVT-PE Treat 30D See Rx Instructions .ROUTE 02/22/20 Start] .COMPLEX #74 dose pk Previous Rx's Medication Instructions Recorded etonogestrel 68 mg subdermal 1 implant SBD ONCE #1 each 02/03/20 implant gabapentin 600 mg tablet 600 mg PO DIRECTED #60 tab 02/15/20 cephalexin [Keflex] 500 mg PO QID #40 cap 02/20/20 sulfamethoxazole-trimethoprim 1 tab PO BID #20 tab 02/20/20 [Bactrim DS] apixaban [Eliquis DVT-PE Treat 30D See Rx Instructions .ROUTE 02/22/20 Start] .COMPLEX #74 dose pk Allergies Allergy/AdvReac Type Severity Reaction Status Date / Time indomethacin AdvReac Mild Per pt. Verified 02/22/20 15:04 medication makes her loopy. promethazine HCl AdvReac Mild MAKES PT. Verified 02/22/20 15:04 [From Phenergan] FORGETFUL/confusion General Stated Complaint: GenMedical FLORECITA: 3 Review of Systems <SILVIANO Conner - Last Filed: 02/23/20 18:07> Constitutional Constitutional: Denies fever(s) Cardiovascular Cardiovascular: Denies chest pain and Denies dyspnea Respiratory Respiratory: Denies dyspnea Musculoskeletal Musculoskeletal: Denies numbness and Denies tingling Integumentary/Breasts Skin/Breast: Denies erythema Neurologic Neurologic: Denies numbness and Denies tingling PFSH <SILVIANO Conner - Last Filed: 02/23/20 18:07> Medical History Adult BMI > 30 (Resolved) Anxiety and depression (Acute) Atypical chest pain (Resolved) Bicornate uterus (Chronic) Blood glucose elevated (Resolved) Dizziness (Resolved) Fibrocystic breast (Acute) Gastritis (Resolved) GERD (gastroesophageal reflux disease) (Acute) HLD (hyperlipidemia) (Acute) HPV (human papilloma virus) infection (Resolved) genital warts Hx of abnormal cervical Pap smear (Acute) Hypertriglyceridemia (Resolved) Insomnia (Resolved) Migraines (Acute) Mood disorder (Acute) Myalgia (Resolved) Nexplanon in place (Acute) 02/03/2020 previous device removed new device inserted. Obesity (Acute) Pilonidal cyst (Resolved) Sleep apnea (Acute) Sore throat (Resolved) Substance abuse (Resolved) Opiates & cocaine; in remission since 2014 Tobacco use disorder (Acute) Surgical History Arthroplasty of knee (12/07/14) Cholecystectomy (02/26/11) I&D, abscess rgt arm Family History Mother Substance abuse Meth Mental disorder Depression, anxiety, & PTSD Neoplasm Cervical, lung and rectal CA Father Substance abuse EtOH Heart disease Afib Son Mental disorder Depression Grandmother Neoplasm Breast CA dx'ed 50s Social History Smoking/Tobacco Use Status: Current every day Alcohol Intake: never Drug use: Never Substance use type: does not use Pets and animals: Yes Pets and animals: dog(s) Do you feel safe at home: Yes Do you feel safe in your relationship?: Yes History History 1 Para 1 Hx # Term Pregnancies Multiple births Hx # Pregnancies Ectopic pregnancies AB induced Hx Number of Living Children AB spontaneous Exam <SILVIANO Conner - Last Filed: 02/23/20 18:07> Const General: cooperative, healthy appearing, comfortable and no acute distress Orientation: alert, awake and oriented x3 HENMT Head: normal to inspection, normocephalic and atraumatic Mouth: moist mucous membranes Eyes Conjunctivae: conjunctivae normal Neck Neck: normal visual inspection, trachea midline and supple Resp Effort & Inspection: normal respiratory effort and able to speak in complete sentences Auscultation: clear to auscultation bilaterally Cardio Rate: regular rate Rhythm: regular rhythm Skin General skin exam: no rashes or lesions noted Neuro General: patient alert, patient awake, moves all extremities and no focal motor deficits Sensory Exam: no sensory deficits noted Extrem Right upper extremity: full ROM, normal capillary refill and elbow/forearm Details: normal ROM, distal pulses intact and other (Induration, antecubital region); no tenderness and no swelling Psych Appearance: grossly normal Mental Status: mental status grossly normal Course <SILVIANO Conner - Last Filed: 02/23/20 18:07> Vital Signs Vital signs: Vital Signs Temperature 36.6 C 02/22/20 14:56 Pulse 98 H 02/22/20 14:56 Respiratory Rate 18 02/22/20 14:56 Blood Pressure 118/84 02/22/20 14:56 Pulse Oximetry 100 02/22/20 14:56 Temperature 36.6 C 02/22/20 14:56 Temperature Source Temporal Artery Scan 02/22/20 14:56 Pulse 98 H 02/22/20 14:56 Respiratory Rate 18 02/22/20 15:01 Respiratory Effort Non-Labored 02/22/20 15:01 Respiratory Depth Normal 02/22/20 15:01 Respiratory Pattern Normal 02/22/20 15:01 Blood Pressure 118/84 02/22/20 14:56 Blood Pressure Position Sitting 02/22/20 14:56 Pulse Oximetry 100 02/22/20 14:56 Oxygen Delivery Method Room Air 02/22/20 14:56 Oxygen Flow Rate 0 02/22/20 14:56 Pain Level 2 02/22/20 14:56
--- NOTE | 2020-02-22 15:40 | NUR.NOTE ---
Nursing Note: Referral faxed to PCP
[2020-02-22 16:16] LABS: Abs Immature Grans 0.11 k/cumm (0.0-0.09); Absolute Basophil Count 0.01 k/cumm (0.0-0.2); Absolute Eosinophil Count 0.21 k/cumm (0.0-0.7); Absolute Lymphocyte Count 3.41 k/cumm (1.2-3.4); Absolute Monocyte Count 0.65 k/cumm (0.11-0.7); Absolute Neutrophil Count 4.86 k/cumm (1.2-6.7); Basophils % 0.1; Eosinophils % 2.3; HGB 14.4 g/dL (12.0-15.5); Immature Grans % 1.2 %; Lymphocytes % 36.9; Mean Corp. HGB Concentration 35.1 g/dL (32.0-36.0); Mean Corpuscular Hemoglobin 31.4 pg (27.0-33.0); Mean Corpuscular Volume 89.5 fL (80-95); Mean Platelet Volume 9.3 fL (8.0-11.0); Neutrophils % 52.5; Platelet Count 273 x1000/uL (130-400); RBC 4.58 m/cumm (4.00-5.20); RBC Distribution Width 12.8 % (11.7-14.6); White Blood Cell Count 9.25 k/cumm (4.4-10.8)
[2020-02-22 16:30] LABS: ALT 28 U/L (14-59); AST 12 U/L (15-37); Albumin 3.7 g/dL (3.4-5.0); Alkaline Phosphatase 55 U/L (46-116); Anion Gap 6.6 mmol/L (3-11); BUN 14 mg/dL (7-18); Bilirubin, Total 0.2 mg/dL (0.2-1.0); CO2 25.4 mmol/L (21.0-32.0); Chloride 104 mmol/L (98-107); Glucose 92 mg/dL (74-106); Potassium 4.3 mmol/L (3.5-5.1); Sodium 136 mmol/L (136-145); Total Protein 6.9 g/dL (6.4-8.2)
[2020-02-22 16:32] LABS: INR 0.9 (0.9-1.1); PTT Activated 25.8 sec (21.0-31.4)
== END 2020-02-22 16:05 | disposition home or self-care (01) ==
PROVIDERS: Emergency Provider Physician Assistant; PCP Nurse Practitioner Family
DX: I80.8 Phlebitis and thrombophlebitis of other sites (principal); F11.21 Opioid dependence, in remission; F14.11 Cocaine abuse, in remission; R22.31 Localized swelling, mass and lump, right upper limb
CPT/HCPCS: 36415; 80053; 99283; 85025; 85610; 85730

== ENCOUNTER 2021-01-09 08:52 | Emergency (ER) | payer MEDICAID, SELFPAY ==
[2021-01-09 09:08] VITALS: BP 120/81; PULSE 126; RESP 16; TEMP 36.5; O2SAT 94
--- NOTE | 2021-01-09 09:28 | ED.GENADUL_ITS ---
Discharge Plan Disposition Patient Disposition: HOME Condition: Stable Discharge Details Clinical Impression: Cellulitis of left leg without foot, Active intravenous drug use Primary Care Provider: Diane Dunlap ED Provider: Anna Hui Home Meds and New Rx's Prescriptions: New sulfamethoxazole-trimethoprim [Bactrim DS] 800-160 mg tablet 1 tab PO BID 7 Days Qty: 14 RF: 0 cephalexin 500 mg tablet 500 mg PO BID 7 Days Qty: 14 RF: 0 Continued methadone 10 mg tablet 100 mg PO DAILY RF: 0 gabapentin 300 mg capsule 300 mg PO DAILY PRN (Reason: headaches) Qty: 7 RF: 0 Nexplanon 68 mg implant 1 implant SBD ONCE Qty: 1 RF: 0 multivitamin 1 EACH capsule 1 ea PO DAILY RF: 0 Discharge Instructions Instructions: Cellulitis (ED) Additional Instructions: Continue antibiotics adjusted 3 days to kick in. Return to the ED if extending redness beyond the markings, fever, myalgias, worsening pain. Follow up with primary care provider in 3-5 days. Return to ED sooner if any worsening or concerns. Increase oral fluids. Please take Tylenol or Ibuprofen with food every 4-6 hours as needed for pain and swelling. Referrals: Diane Dunlap [Primary Care Provider] - Discharge Data Discharge Date/Time-TO BE ENTERED AT DEPARTURE: 01/09/21 10:18 Medical Decision Making 35-year-old female presents the ER chief complaint of left lower extremity cellulitis after injecting cocaine on Saturday night. Patient states she then began with increased redness starting Saturday morning, increased pain, she did feel like she had a fever last night. She also reports she had some nausea and vomiting since last night. She has been taking a friend Bactrim and cefuroxime which she states has improved her symptoms. She also endorses Ritalin and Adderall due to being stressed out for an upcoming move. She has a past medical history of anxiety and depression, gastritis, GERD, migraines, mood disorder. She does get 100 mg of methadone dose at the [facility] which she was there this morning. Discussed option for IV, blood work IV antibiotics and rehydration with IV fluids. Patient opted to have oral antibiotics, Zofran orally and attempt with fluid rehydration. Patient placed on Bactrim and cephalexin for 7 days instructed on strict return instructions, verbalized understanding. Erythema was measured and marked by hourly sales staff discussed to return if extends above the markings. HPI General Mode of arrival: ambulatory . Date/Time Provider Initiated Documentation: 01/09/21 09:11 . Limitations to Documentation: no limitations . Information obtained by: patient, RN notes reviewed and old records reviewed . HPI Narrative: 35-year-old female presents the ER chief complaint of left lower extremity cellulitis after injecting cocaine on Saturday night. Patient states she then began with increased redness starting Saturday morning, increased pain, she did feel like she had a fever last night. She also reports she had some nausea and vomiting since last night. She has been taking a friend Bactrim and cefuroxime which she states has improved her symptoms. She also endorses Ritalin and Adderall due to being stressed out for an upcoming move. She has a past medical history of anxiety and depression, gastritis, GERD, migr aines, mood disorder. She does get 100 mg of methadone dose at the [facility] clinic which she was there this morning. Related Data Home Medications Medication Instructions Recorded Confirmed multivitamin 1 ea PO DAILY 11/09/17 01/09/21 etonogestrel 68 mg subdermal 1 implant SBD ONCE #1 each 02/03/20 01/09/21 implant methadone 10 mg tablet 100 mg PO DAILY tab 01/02/21 01/09/21 gabapentin 300 mg capsule 300 mg PO DAILY PRN #7 cap 01/03/21 01/09/21 cephalexin 500 mg PO BID 7 Days #14 tab 01/09/21 sulfamethoxazole-trimethoprim 1 tab PO BID 7 Days #14 tab 01/09/21 [Bactrim DS] Previous Rx's Medication Instructions Recorded etonogestrel 68 mg subdermal 1 implant SBD ONCE #1 each 02/03/20 implant gabapentin 300 mg capsule 300 mg PO DAILY PRN #7 cap 01/03/21 cephalexin 500 mg PO BID 7 Days #14 tab 01/09/21 sulfamethoxazole-trimethoprim 1 tab PO BID 7 Days #14 tab 01/09/21 [Bactrim DS] Allergies Allergy/AdvReac Type Severity Reaction Status Date / Time indomethacin AdvReac Mild Per pt. Verified 01/09/21 09:21 medication makes her loopy. promethazine HCl AdvReac Mild MAKES PT. Verified 01/09/21 09:21 [From Phenergan] FORGETFUL/confusion General Stated Complaint: RashLesion FLORECITA: 3 Review of Systems All systems reviewed & are unremarkable except as noted in HPI and below Musculoskeletal Musculoskeletal: Reports as per HPI, Reports myalgias and Reports radiating pain into limb (Left lateral erythema, tenderness after report of injection of cocaine) PFSH Medical History Anxiety and depression Atypical chest pain Bicornate uterus Blood glucose elevated Dizziness Fibrocystic breast Gastritis GERD (gastroesophageal reflux disease) HLD (hyperlipidemia) HPV (human papilloma virus) infection genital warts Hx of abnormal cervical Pap smear Hypertriglyceridemia Insomnia Migraines Mood disorder Myalgia Nexplanon in place 02/03/2020 previous device removed new device inserted. Obesity Pilonidal cyst Sleep apnea Sore throat Substance abuse Opiates & cocaine; in remission since fall 2019 Tobacco use disorder Surgical History Arthroplasty of knee (12/07/14) Cholecystectomy (02/26/11) I&D, abscess rgt arm Family History Mother Substance abuse Meth Mental disorder Depression, anxiety, & PTSD Neoplasm Cervical, lung and rectal CA Father Substance abuse EtOH Heart disease Afib Son Mental disorder Depression Grandmother Neoplasm Breast CA dx'ed 50s Social History Smoking/Tobacco Use Status: Current every day Tobacco Type: cigarettes Smoking risk assessment performed?: Yes Alcohol Intake: never Drug use: Occasionally Substance use type: crack/cocaine Household members: children Housing: apartment Pets and animals: Yes Pets and animals: dog(s) What type of physical activity do you participate in: walking Seatbelt use: always Do you feel safe at home: Yes Do you feel safe in your relationship?: Yes History History 1 Para 1 Hx # Term Pregnancies Multiple births Hx # Pregnancies Ectopic pregnancies AB induced Hx Number of Living Children AB spontaneous Exam Extrem Left lower extremity: knee (See diagram below) Details: abnormal to inspection, tenderness, normal ROM and warmth Knee images: 1. Erythema, warmth 2. Puncture darline 3. Erythema Course Vital Signs Vital signs: Vital Signs Temperature 36.5 C 01/09/21 09:08 Pulse 126 H 01/09/21 09:08 Respiratory Rate 16 01/09/21 09:08 Blood Pressure 120/81 01/09/21 09:08 Pulse Oximetry 94 01/09/21 09:08 Temperature 36.5 C 01/09/21 09:08 Temperature Source Skin 01/09/21 09:08 Pulse 126 H 01/09/21 09:08 Respiratory Rate 16 01/09/21 09:08 Blood Pressure 120/81 01/09/21 09:08 Blood Pressure Position Sitting 01/09/21 09:08 Pulse Oximetry 94 01/09/21 09:08 Oxygen Delivery Method Room Air 01/09/21 09:08 Oxygen Flow Rate 0 01/09/21 09:08 Pain Level 3 01/09/21 09:08 Comment 01/09/21 09:08
[2021-01-09] MEDS: Ondansetron O.D.T. 4 MG TABEF, 3 TABS/BTL PO (09:36)
[2021-01-09] MEDS: Cephalexin 500 MG CAP PO (09:37)
[2021-01-09] MEDS: Sulfameth/Trimeth DS TAB 1 TAB PO (09:37)
[2021-01-09] MEDS: Ondansetron O.D.T. 4 MG TABEF PO (09:37)
[2021-01-09] MEDS: cefTRIAXone 500 MG VIAL IM (09:50)
== END 2021-01-09 10:18 | disposition home or self-care (01) ==
PROVIDERS: Emergency Provider Registered Nurse Emergency; PCP Nurse Practitioner Family
DX: L03.116 Cellulitis of left lower limb (principal)
CPT/HCPCS: 99283; 99282; J0696

== ENCOUNTER 2021-01-10 21:38 | Inpatient (IN) | payer MEDICAID, SELFPAY ==
[2021-01-10 21:45] VITALS: BP 126/83; PULSE 101; RESP 16; TEMP 36.6; O2SAT 99
--- NOTE | 2021-01-10 21:49 | ED.GENADUL_ITS ---
Discharge Plan Disposition Patient Disposition: [facility] INPATIENT Condition: Stable Discharge Details Clinical Impression: Cellulitis and abscess of left leg Primary Care Provider: Diane Dunlap ED Provider: Anna Hui Home Meds and New Rx's Prescriptions: No Action methadone 10 mg tablet 100 mg PO DAILY RF: 0 gabapentin 300 mg capsule 300 mg PO DAILY PRN (Reason: headaches) Qty: 7 RF: 0 Nexplanon 68 mg implant 1 implant SBD ONCE Qty: 1 RF: 0 multivitamin 1 EACH capsule 1 ea PO DAILY RF: 0 sulfamethoxazole-trimethoprim [Bactrim DS] 800-160 mg tablet 1 tab PO BID 7 Days Qty: 14 RF: 0 cephalexin 500 mg tablet 500 mg PO BID 7 Days Qty: 14 RF: 0 Medical Decision Making 35-year-old female presents the ER for second time in 48 hours with a recheck of her left lower extremity cellulitis. She was seen by myself yesterday after reporting injecting cocaine into the lateral left knee. She did have some surrounding erythema measuring approximately 9 cm x 9 cm. Today she presents with increasing erythema, which extends up to her posterior mid thigh and down t he distal part of her calf, myalgias and not feeling well. She reports taking Tylenol and ibuprofen alternating every 4 hours. She did take her a.m. dose of the cephalexin and Bactrim. She does have a past medical history of IV drug abuse, depression, hyperlipidemia, mood disorder, opioid dependency, GERD, sleep apnea, thrombosis of right upper extremity. She denies using any other illicit substances today she did get her methadone dose this morning. At this time work-up ordered including CBC, CMP, lactate, blood cultures x2, CRP. White blood cell count shows mild elevation at 11.86, absolute neutrophils 8.79 lactate 0.8 which is within normal limits CMP is largely within normal limits, C-reactive protein is 20.2. At this time I recommend admission for worsening cellulitis due to the significant spread in a short period time. Discussed possible admission for IV antibiotics with patient she is agreeable at this time. 2008: Discussed patient case in details with hospitalist Dr. Peng for worsening cellulitis he agrees that patient for admission for observation and IV antibiotics he does recommend vancomycin in addition to the cefazolin at this time. I will discuss plan of care with patient. Medical Records Medical records reviewed: Yes I reviewed the patient's medical records. Lab Data Lab results reviewed: Yes I reviewed the patient's lab results. HPI General Mode of arrival: ambulatory . Date/Time Provider Initiated Documentation: 01/10/21 21:39 . Limitations to Documentation: no limitations . Information obtained by: patient, RN notes reviewed and old records reviewed . HPI Narrative: 35-year-old female presents the ER for second time in 48 hours with a recheck of her left lower extremity cellulitis. She was seen by myself yesterday after reporting injecting cocaine into the lateral left knee. She did have some surrounding erythema measuring approximately 9 cm x 9 cm. Today she presents with increasing erythema, which extends up to her posterior mid thigh and down the distal part of her calf, myalgias and not feeling well. She reports taking Tylenol and ibuprofen alternating every 4 hours. She did take her a.m. dose of the cephalexin and Bactrim. She does have a past medical history of IV drug abuse, depression, hyperlipidemia, mood disorder, opioid dependency, GERD, sleep apnea, thrombosis of right upper extremity. She denies using any other illicit substances today she did get her methadone dose this morning. Related Data Home Medications Medication Instructions Recorded Confirmed multivitamin 1 ea PO DAILY 11/09/17 01/09/21 etonogestrel 68 mg subdermal 1 implant SBD ONCE #1 each 02/03/20 01/09/21 implant methadone 10 mg tablet 100 mg PO DAILY tab 01/02/21 01/09/21 gabapentin 300 mg capsule 300 mg PO DAILY PRN #7 cap 01/03/21 01/09/21 cephalexin 500 mg PO BID 7 Days #14 tab 01/09/21 sulfamethoxazole-trimethoprim 1 tab PO BID 7 Days #14 tab 01/09/21 [Bactrim DS] Previous Rx's Medication Instructions Recorded etonogestrel 68 mg subdermal 1 implant SBD ONCE #1 each 02/03/20 implant gabapentin 300 mg capsule 300 mg PO DAILY PRN #7 cap 01/03/21 cephalexin 500 mg PO BID 7 Days #14 tab 01/09/21 sulfamethoxazole-trimethoprim 1 tab PO BID 7 Days #14 tab 01/09/21 [Bactrim DS] Allergies Allergy/AdvReac Type Severity Reaction Status Date / Time indomethacin AdvReac Mild Per pt. Verified 01/09/21 09:21 medication makes her loopy. promethazine HCl AdvReac Mild MAKES PT. Verified 01/09/21 09:21 [From Phenergan] FORGETFUL/confusion General FLORECITA: 3 Review of Systems Narrative: Constitutional: Negative for weight loss, alert and oriented, well groomed, normal body habitus, appears comfortable. HEENT: Denies trauma, headaches, blurry vision, nasal discharge, sore throat, trouble swallowing. Chest: Denies chest pain, palpitations, irregular rhythm, hypertension. Respiratory: Denies Shortness of breath, cough, hemoptysis. GI: Denies abdominal pain, nausea, vomiting, diarrhea, constipation. : Denies dysuria, hematuria, flank pain, rectal bleeding. Musculoskeletal: Worsening redness and pain to her left lower extremity. Neuro: Denies dizziness, blurry vision, weakness, syncope, headache or facial numbness. Hematologic: Denies easy bruising, intolerance to heat or cold, hair loss. [facility] Medical History Anxiety and depression Atypical chest pain Bicornate uterus Blood glucose elevated Dizziness Fibrocystic breast Gastritis GERD (gastroesophageal reflux disease) HLD (hyperlipidemia) HPV (human papilloma virus) infection genital warts Hx of abnormal cervical Pap smear Hypertriglyceridemia Insomnia Migraines Mood disorder Myalgia Nexplanon in place 02/03/2020 previous device removed new device inserted. Obesity Pilonidal cyst Sleep apnea Sore throat Substance abuse Opiates & cocaine; in remission since fall 2019 Tobacco use disorder Surgical History Arthroplasty of knee (12/07/14) Cholecystectomy (02/26/11) I&D, abscess rgt arm Family History Mother Substance abuse Meth Mental disorder Depression, anxiety, & PTSD Neoplasm Cervical, lung and rectal CA Father Substance abuse EtOH Heart disease Afib Son Mental disorder Depression Grandmother Neoplasm Breast CA dx'ed 50s Social History Smoking/Tobacco Use Status: Current every day Tobacco Type: cigarettes Smoking risk assessment performed?: Yes Alcohol Intake: never Drug use: Occasionally Substance use type: crack/cocaine Household members: children Housing: apartment Pets and animals: Yes Pets and animals: dog(s) What type of physical activity do you participate in: walking Seatbelt use: always Do you feel safe at home: Yes Do you feel safe in your relationship?: Yes History History 1 Para 1 Hx # Term Pregnancies Multiple births Hx # Pregnancies Ectopic pregnancies AB induced Hx Number of Living Children AB spontaneous Exam Narrative Exam Narrative: Constitutional: Alert and oriented x3. Appears stated age. Normal body habitus. Head: Normocephalic, no trauma. Eyes: Pupils PERRLA, Red reflex noted, EOM's intact. Eyelids symmetrical without lesions, discharge, or swelling. ENT: Bilateral TM's WNL, External ear normal to inspection, no mastoid TTP, swelling, or erythema, Nasal turbinates WNL, no nasal discharge. Normal dentition, Posterior pharynx WNL, no exudate. Chest: RRR, Normal S1, S2, distal pulses intact. Resp: Lungs clear to auscultation bilaterally, no wheezes, rales, or rhonchi. Musculoskeletal: Normal gait, 5/5 strength to all four extremities. Skin: See extremity diagram below. capillary refill less than 2 sec. Neurologic: Cranial nerves II-XII intact. Alert and oriented x 3. DTR's intact. Hematologic/Lymphatic: No ecchymosis, no lymphadenopathy. Extrem Upper/lower leg/hip images: 1. Erythema 2. Erythema
[2021-01-10] MEDS: Normal Saline 1,000 ML 1000 ML IV (22:15)
[2021-01-10 22:22] LABS: Lactate 0.8 mmol/L (0.6-1.4)
[2021-01-10 22:26] LABS: Abs Immature Grans 0.05 10^3/uL (0.0-0.06); Absolute Basophil Count 0.04 10^3/uL (0.0-0.2); Absolute Eosinophil Count 0.15 10^3/uL (0.0-0.7); Absolute Lymphocyte Count 2.03 10^3/uL (1.2-3.4); Absolute Monocyte Count 0.81 10^3/uL (0.1-0.8); Absolute Neutrophil Count 8.79 10^3/uL (1.2-6.7); Basophils % 0.3; Eosinophils % 1.3; HCT 39.3 % (36.0-46.0); HGB 13.5 g/dL (11.2-15.7); Immature Grans % 0.4; Lymphocytes % 17.1; MCH 30.5 pg (27.0-33.0); MCHC 34.4 % (32.0-36.0); MCV 88.9 fL (80-95); Monocytes % 6.8; Neutrophils % 74.1; Nucleated RBC 0 %; Platelet Count 237 10^3/uL (130-400); RBC 4.42 10^6/uL (3.93-5.22); RDW 12.2 % (11.7-14.6); RDW-SD 39.7 fL; WBC 11.86 10^3/uL (4.4-10.8)
[2021-01-10 22:39] LABS: ALT 28 U/L (14-59); AST 15 U/L (15-37); Albumin 3.7 g/dL (3.4-5.0); Alkaline Phosphatase 83 U/L (46-116); Anion Gap 9.3 mmol/L (3-11); BUN 18 mg/dL (7-18); Bilirubin, Total 0.3 mg/dL (0.2-1.0); C-Reactive Protein 20.82 mg/dL (0.0-0.3); CO2 26.7 mmol/L (21.0-32.0); CREATININE 0.9 mg/dL (0.55-1.02); Calcium 10.3 mg/dL (8.5-10.1); Chloride 102 mmol/L (98-107); Glucose 95 mg/dL (74-106); Magnesium 2.2 mg/dL (1.8-2.4); Potassium 4.2 mmol/L (3.5-5.1); Sodium 138 mmol/L (136-145); Total Protein 7.5 g/dL (6.4-8.2)
[2021-01-10] MEDS: ceFAZolin 1 GM/50 ML BAG IVPB (23:06)
[2021-01-10 23:25] LABS: Source Nasal/Nares
--- NOTE | 2021-01-10 23:26 | W.PM.HP.N ---
Date of service: 01/10/21 Time of Service: 23:26 Assessment and Plan Assessment and plan (1) Cellulitis and abscess of left leg: Start date: 01/10/21 Status: Acute Assessment and plan: This is a 35-year-old lady who injected her left lateral knee with cocaine 48 hours prior to admission with resulting local cellulitis and now more diffuse cellulitis with rapid progression over her left lower extremity. She has failed outpatient therapy with Bactrim DS and Keflex. She will be started on vancomycin and Ancef for IV therapy of her acute progression. She is noted marked improvement overnight. She continues to have induration over the left lateral calf but less induration of her thigh and decreased erythema overall. She has had no fever. She may be on IV antibiotic for at least 48 hours and then consider conversion to oral therapy depending on whether her blood cultures are positive which should guide antibiotic therapy. (2) Active intravenous drug use: Status: Chronic Assessment and plan: Patient needs increased counseling on IV drug use with increased risk having had a DVT in her right upper extremity in the past and now with injection site cellulitis and complications. (3) Polysubstance abuse: Status: Chronic Assessment and plan: Continue counseling at methadone clinic and personal counseling may be helpful. (4) Opioid dependence: Status: Chronic Assessment and plan: Patient methadone will be continued at 100 mg daily and once discharge she will continue outpatient therapy with [facility]. Qualifiers: Substance use status: in remission Qualified Code(s): F11.21 - Opioid dependence, in remission History of Present Illness History of Present Illness Chief Complaint: Hot, red rash IV drug site left leg. Narrative: This is a 35-year-old female patient who was seen in the ED the day prior to admission for cellulitis and IV injection site where she and injected cocaine over her left lateral knee. The area was marked with a black marker and covered most of the knee with induration and erythema with increased warmth to touch in that area. She was started on oral antibiotics including Bactrim DS and Keflex with poor response over 48 hours. With return to the ED her rash had extended over her lateral thigh up toward the trochanteric area and onto her lateral calf with swelling and tenderness. She states that she felt chilled and did not feel well but had no measured fever in the ED. In the ED she did have slight elevation of her WBC but a negative lactate. She had failed outpatient therapy with oral antibiotics for he cellulitis. The infection appears to be progressing rapidly. She denies any chest pain or palpitations. She has had no history of heart murmur. She chronically is on multiple drugs including methadone for maintenance of opioid dependence but she also had taken some branch stimulants and was injecting cocaine. She has received her methadone dose the morning of admission. Pertinent review of systems otherwise unrevealing. Review of Systems Narrative: 13 point review of systems otherwise unrevealing or stable. [facility] Medical History Anxiety and depression Atypical chest pain Bicornate uterus Blood glucose elevated Dizziness Fibrocystic breast Gastritis GERD (gastroesophageal reflux disease) HLD (hyperlipidemia) HPV (human papilloma virus) infection genital warts Hx of abnormal cervical Pap smear Hypertriglyceridemia Insomnia Migraines Mood disorder Myalgia Nexplanon in place 02/03/2020 previous device removed new device inserted. Obesity Pilonidal cyst Sleep apnea Sore throat Substance abuse Opiates & cocaine; in remission since fall 2019 Tobacco use disorder Surgical History Arthroplasty of knee (12/07/14) Cholecystectomy (02/26/11) I&D, abscess rgt arm Family History Mother Substance abuse Meth Mental disorder Depression, anxiety, & PTSD Neoplasm Cervical, lung and rectal CA Father Substance abuse EtOH Heart disease Afib Son Mental disorder Depression Grandmother Neoplasm Breast CA dx'ed 50s Social History Smoking/Tobacco Use Status: Current every day Tobacco Type: cigarettes Smoking risk assessment performed?: Yes Alcohol Intake: never Drug use: Occasionally Substance use type: crack/cocaine Household members: children Housing: apartment Pets and animals: Yes Pets and animals: dog(s) What type of physical activity do you participate in: walking Seatbelt use: always Do you feel safe at home: Yes Do you feel safe in your relationship?: Yes History History 1 Para 1 Hx # Term Pregnancies Multiple births Hx # Pregnancies Ectopic pregnancies AB induced Hx Number of Living Children AB spontaneous Meds Home Medications and Allergies Allergies Allergy/AdvReac Type Severity Reaction Status Date / Time indomethacin AdvReac Mild Per pt. Verified 01/09/21 09:21 medication makes her loopy. promethazine HCl AdvReac Mild MAKES PT. Verified 01/09/21 09:21 [From Phenergan] FORGETFUL/confusion Home Medications Medication Instructions Recorded Confirmed Type multivitamin 1 ea PO DAILY 11/09/17 01/09/21 History etonogestrel 68 mg subdermal 1 implant SBD ONCE #1 each 02/03/20 01/09/21 Rx implant methadone 10 mg tablet 100 mg PO DAILY tab 01/02/21 01/09/21 History gabapentin 300 mg capsule 300 mg PO DAILY PRN #7 cap 01/03/21 01/09/21 Rx cephalexin 500 mg PO BID 7 Days #14 tab 01/09/21 Rx sulfamethoxazole-trimethoprim 1 tab PO BID 7 Days #14 tab 01/09/21 Rx [Bactrim DS] Exam Narrative Exam Narrative: General: Patient appears older than stated age, in no acute distress and alert and oriented x3. She is disheveled. HEENT: Normocephalic, thinning hair over scalp, face with slightly coarsened features. Eyes with pupils equal and reactive to light symmetrically, extraocular movement intact and sclera anicteric. Oropharynx with moist mucosa. Fair dentition. External ears and nose normal. Neck: Supple without JVD. Lungs: Clear to auscultation and percussion. Back: Stooped posture with no CVA tenderness. Breast: Exam deferred. Heart: Regular rate and rhythm with no murmurs, rubs or gallops appreciated. Abdomen: Obese contour, soft and nontender to palpation. No palpable hepatosplenomegaly. Bowel sounds positive all quadrants. Genitalia/rectal: Exam deferred. Extremities: Without clubbing, cyanosis or pitting edema. Moderate edema over right upper extremity which is nonpitting (previous DVT right upper extremity). Left leg with erythema and increased warmth over the lateral knee down onto the lateral calf with induration in the area of the calf. Black marker is over the left knee with erythema in this area decreased without induration and most of the induration over the lateral calf. Erythematous nonindurated area of skin with increased warmth to touch over the lateral lower thigh. Patient reports overall the area of erythema and induration has decreased since admission to the ED with IV antibiotics administered. Peripheral pulses intact. All joints have fair range of motion. Skin: Erythematous rash left leg as mentioned otherwise warm, moist and slightly flushed in color. Neuro: Cranial nerves II through XII grossly intact, no focal motor deficits. No gross sensory deficits. Psych: Slightly anxious with normal mood. No abnormal thought processes. Remote and recent memory intact. Results Labs Result diagrams: 01/10/21 22:15 01/10/21 22:15 Labs: Laboratory Results - last 24 hr 01/10/21 01/10/21 01/10/21 22:15 22:15 22:15 WBC 11.86 H RBC 4.42 Hgb 13.5 Hct 39.3 MCV 88.9 MCH 30.5 MCHC 34.4 RDW 12.2 Plt Count 237 MPV 10.0 Immature Gran % 0.4 Neutrophils % 74.1 Lymphocytes % 17.1 Monocytes % 6.8 Eosinophils % 1.3 Basophils % 0.3 Nucleated RBC % 0 Absolute Neutrophils 8.79 H Absolute Lymphocytes 2.03 Absolute Monocytes 0.81 H Absolute Eosinophils 0.15 Absolute Basophils 0.04 VBG Lactate 0.8 Sodium 138 Potassium 4.2 Chloride 102 Carbon Dioxide 26.7 Anion Gap 9.3 BUN 18 Creatinine 0.9 Estimated GFR/1.73 m2 >= 60.00 Glucose 95 Calcium 10.3 H Magnesium 2.2 Total Bilirubin 0.3 AST 15 ALT 28 Alkaline Phosphatase 83 C-Reactive Protein 20.82 H Total Protein 7.5 Albumin 3.7 COVID-19 Source 01/10/21 23:19 WBC RBC Hgb Hct MCV MCH MCHC RDW Plt Count MPV Immature Gran % Neutrophils % Lymphocytes % Monocytes % Eosinophils % Basophils % Nucleated RBC % Absolute Neutrophils Absolute Lymphocytes Absolute Monocytes Absolute Eosinophils Absolute Basophils VBG Lactate Sodium Potassium Chloride Carbon Dioxide Anion Gap BUN Creatinine Estimated GFR/1.73 m2 Glucose Calcium Magnesium Total Bilirubin AST ALT Alkaline Phosphatase C-Reactive Protein Total Protein Albumin COVID-19 Source Nasal/nares Last Vital Signs Temp 36.6 C 01/10/21 21:45 Pulse 101 H 01/10/21 21:45 Resp 16 01/10/21 21:45 BP 126/83 01/10/21 21:45 Pulse Ox 99 01/10/21 21:45 COVID-19 Screening Have you, or household traveled for leisure in last 14 days?: No Had IN PERSON contact w/suspected or confirmed C-19 person: No
[2021-01-10] MEDS: VANCOMYCIN 1,000 MG in Normal Saline 250 ML 166.6666 MG IVPB (23:39)
[2021-01-10 23:40] LABS: Bilirubin Negative (Negative); Blood Negative (Negative); Clarity Sl Cloudy (Clear); Glucose Negative (Negative); Ketones 15 mg/dL (Negative); Leukocyte Esterase Negative (Negative); Nitrite Negative (Negative); Specific Gravity >= 1.030 (1.005-1.025); Urobilinogen 0.2 EU/dL (Up TO 0.2)
[2021-01-10 23:51] LABS: *AMPHETAMINES SCREEN URINE Positive (Negative); *BARBITURATES SCREEN URINE Negative (Negative); *BENZODIAZEPINES SCREEN URINE Negative (Negative); Cannabinoids THC Positive (Negative); Cocaine Screen,Urine Positive (Negative); METHADONE URINE SCREEN Positive (Negative); OPIATES URINE SCREEN Negative (Negative); Tricyclic Antidepressants Negative (Negative)
[2021-01-10 23:52] VITALS: BP 107/72; PULSE 88; RESP 20; TEMP 36.2; O2SAT 96
[2021-01-11] VITALS (7 sets, daily range): BP systolic 99–123; BP diastolic 60–74; PULSE 70–97; RESP 17–20; TEMP 36.3–36.6; O2SAT 94–97
--- NOTE | 2021-01-11 | DI.US_ITS ---
EXAM: US UPPER EXTREMITY VENOUS RT CLINICAL HISTORY: swelling, IV drug use.. TECHNIQUE: Ultrasound examination of the right upper extremity venous system(s) is performed using g rayscale, color-flow, and spectral Doppler analysis. COMPARISON: No exams were available for comparison FINDINGS: The right internal jugular, axillary, subclavian, cephalic, basilic, brachial, radial, and ulnar vein s are patent without evidence of thrombosis. No focal soft tissue fluid collection or mass. IMPRESSION: Negative right upper extremity ultrasound. No DVT. DATA REPOSITORY:
[2021-01-11] MEDS: Acetaminophen 325 MG TAB 650 MG PO ×4 (00:39→19:56)
[2021-01-11] MEDS: Normal Saline 500 ML 200 ML IV (06:39)
[2021-01-11] MEDS: Normal Saline Flush 10 ML SYR IVP ×3 (06:40→21:54)
[2021-01-11 07:09] LABS: Abs Immature Grans 0.04 10^3/uL (0.0-0.06); Absolute Basophil Count 0.03 10^3/uL (0.0-0.2); Absolute Eosinophil Count 0.27 10^3/uL (0.0-0.7); Absolute Lymphocyte Count 2.61 10^3/uL (1.2-3.4); Absolute Monocyte Count 0.69 10^3/uL (0.1-0.8); Absolute Neutrophil Count 5.15 10^3/uL (1.2-6.7); Basophils % 0.3; Eosinophils % 3.1; HCT 36.4 % (36.0-46.0); HGB 12.2 g/dL (11.2-15.7); Immature Grans % 0.5; Lymphocytes % 29.7; MCH 30.4 pg (27.0-33.0); MCHC 33.5 % (32.0-36.0); MCV 90.8 fL (80-95); Monocytes % 7.8; Neutrophils % 58.6; Nucleated RBC 0 %; Platelet Count 224 10^3/uL (130-400); RBC 4.01 10^6/uL (3.93-5.22); RDW 12.5 % (11.7-14.6); RDW-SD 41.2 fL; WBC 8.79 10^3/uL (4.4-10.8)
[2021-01-11 07:28] LABS: ALT 23 U/L (14-59); AST 12 U/L (15-37); Alkaline Phosphatase 72 U/L (46-116); Anion Gap 8.1 mmol/L (3-11); BUN 13 mg/dL (7-18); Bilirubin, Total 0.3 mg/dL (0.2-1.0); CO2 24.9 mmol/L (21.0-32.0); CREATININE 0.8 mg/dL (0.55-1.02); Chloride 107 mmol/L (98-107); Glucose 74 mg/dL (74-106); Sodium 140 mmol/L (136-145); Total Protein 6.3 g/dL (6.4-8.2)
[2021-01-11 08:37] LABS: HCG Qual (Urine) Negative
[2021-01-11] MEDS: VANCOMYCIN 750 MG in Normal Saline 250 ML 166.667 MG IVPB ×2 (08:43→15:45)
[2021-01-11] MEDS: Enoxaparin 40 MG/0.4 ML SYR SC (08:44)
[2021-01-11] MEDS: Methadone Liquid 10 MG/ML 100 MG PO (08:44)
[2021-01-11 10:01] LABS: COVID-19 PCR Negative (Negative)
--- NOTE | 2021-01-11 15:26 | W.PM.PROGNOT ---
Date of Service Date of service: 01/11/21 Time of Service: 15:26 Assessment and Plan Assessment and plan (1) Swelling of right upper extremity: Status: Acute Assessment and plan: ultrasound pending. (2) Cellulitis of left leg without foot: Status: Acute Assessment and plan: improved overnight. continue elevation vancomycin and cefazolin day 2 (3) Active intravenous drug use: Status: Chronic Assessment and plan: Continue counseling at methadone clinic, will consult case management for outpatient treatment (4) Opioid dependence: Status: Chronic Assessment and plan: Patient methadone will be continued at 100 mg daily and once discharge she will continue outpatient therapy with [facility]. Qualifiers: Substance use status: in remission Qualified Code(s): F11.21 - Opioid dependence, in remission (5) Discharge planning issues: Status: Acute Assessment and plan: possible discharge to home tomorrow. case management following. Subjective Subjective Patient reports: no new complaints, feels better, tolerating liquids well, tolerating a regular diet and afebrile Interval history since last seen: marked improvement in redness. Exam Const General: cooperative and no acute distress Nutritional Appearance: overweight Orientation: alert, awake and oriented x3 Chest Chest: normal inspection of the chest Resp Effort & Inspection: normal respiratory effort Cardio Rate: regular rate Rhythm: regular rhythm Skin Rashes: rashes noted (mild erythema ) Neuro General: patient alert, patient awake and patient oriented x3 Extrem Left lower extremity: edema (trace) Objective Last Vital Signs Temp 36.5 C 01/11/21 11:44 Pulse 97 H 01/11/21 11:44 Resp 18 01/11/21 11:44 BP 123/73 01/11/21 11:44 Pulse Ox 95 01/11/21 11:44 Laboratory Results - last 24 hr 01/10/21 01/10/21 01/10/21 22:15 22:15 22:15 WBC 11.86 H RBC 4.42 Hgb 13.5 Hct 39.3 MCV 88.9 MCH 30.5 MCHC 34.4 RDW 12.2 Plt Count 237 MPV 10.0 Immature Gran % 0.4 Neutrophils % 74.1 Lymphocytes % 17.1 Monocytes % 6.8 Eosinophils % 1.3 Basophils % 0.3 Nucleated RBC % 0 Absolute Neutrophils 8.79 H Absolute Lymphocytes 2.03 Absolute Monocytes 0.81 H Absolute Eosinophils 0.15 Absolute Basophils 0.04 VBG Lactate 0.8 Sodium 138 Potassium 4.2 Chloride 102 Carbon Dioxide 26.7 Anion Gap 9.3 BUN 18 Creatinine 0.9 Estimated GFR/1.73 m2 >= 60.00 Glucose 95 Calcium 10.3 H Magnesium 2.2 Total Bilirubin 0.3 AST 15 ALT 28 Alkaline Phosphatase 83 C-Reactive Protein 20.82 H Total Protein 7.5 Albumin 3.7 Urine Color Urine Clarity Urine pH Ur Specific [place] Urine Protein Urine Ketones Urine Blood Urine Nitrite Urine Bilirubin Urine Urobilinogen Ur Leukocyte Esterase Urine Glucose Urine HCG, Qual Urine Opiates Screen Urine Methadone Screen Ur Barbiturates Screen Ur Tricyclics Screen Ur Amphetamines Screen U Benzodiazepines Scrn Urine Cocaine Screen Ur THC Screen COVID-19 Source SARS-CoV-2 (PCR) 01/10/21 01/10/21 01/10/21 23:19 23:35 23:35 WBC RBC Hgb Hct MCV MCH MCHC RDW Plt Count MPV Immature Gran % Neutrophils % Lymphocytes % Monocytes % Eosinophils % Basophils % Nucleated RBC % Absolute Neutrophils Absolute Lymphocytes Absolute Monocytes Absolute Eosinophils Absolute Basophils VBG Lactate Sodium Potassium Chloride Carbon Dioxide Anion Gap BUN Creatinine Estimated GFR/1.73 m2 Glucose Calcium Magnesium Total Bilirubin AST ALT Alkaline Phosphatase C-Reactive Protein Total Protein Albumin Urine Color Yellow Urine Clarity Sl cloudy Urine pH 7.0 Ur Specific [place] >= 1.030 H Urine Protein Negative Urine Ketones 15 H Urine Blood Negative Urine Nitrite Negative Urine Bilirubin Negative Urine Urobilinogen 0.2 Ur Leukocyte Esterase Negative Urine Glucose Negative Urine HCG, Qual Urine Opiates Screen Negative Urine Methadone Screen Positive A Ur Barbiturates Screen Negative Ur Tricyclics Screen Negative Ur Amphetamines Screen Positive A U Benzodiazepines Scrn Negative Urine Cocaine Screen Positive A Ur THC Screen Positive A COVID-19 Source Nasal/nares SARS-CoV-2 (PCR) Negative 01/10/21 01/11/21 01/11/21 23:35 06:48 06:48 WBC 8.79 RBC 4.01 Hgb 12.2 Hct 36.4 MCV 90.8 MCH 30.4 MCHC 33.5 RDW 12.5 Plt Count 224 MPV 10.0 Immature Gran % 0.5 Neutrophils % 58.6 Lymphocytes % 29.7 Monocytes % 7.8 Eosinophils % 3.1 Basophils % 0.3 Nucleated RBC % 0 Absolute Neutrophils 5.15 Absolute Lymphocytes 2.61 Absolute Monocytes 0.69 Absolute Eosinophils 0.27 Absolute Basophils 0.03 VBG Lactate Sodium 140 Potassium 4.0 Chloride 107 Carbon Dioxide 24.9 Anion Gap 8.1 BUN 13 Creatinine 0.8 Estimated GFR/1.73 m2 >= 60.00 Glucose 74 Calcium 9.0 Magnesium Total Bilirubin 0.3 AST 12 L ALT 23 Alkaline Phosphatase 72 C-Reactive Protein Total Protein 6.3 L Albumin 3.0 L Urine Color Urine Clarity Urine pH Ur Specific [place] Urine Protein Urine Ketones Urine Blood Urine Nitrite Urine Bilirubin Urine Urobilinogen Ur Leukocyte Esterase Urine Glucose Urine HCG, Qual Negative Urine Opiates Screen Urine Methadone Screen Ur Barbiturates Screen Ur Tricyclics Screen Ur Amphetamines Screen U Benzodiazepines Scrn Urine Cocaine Screen Ur THC Screen COVID-19 Source SARS-CoV-2 (PCR)
[2021-01-11] MEDS: Ibuprofen 600 MG TAB PO (16:07)
[2021-01-11] MEDS: Gabapentin 300 MG CAP PO (16:08)
--- NOTE | 2021-01-11 16:11 | INITIAL_ITS ---
- If Service Date Differs Date of service: 01/11/21 Time of Service: 16:11 Care Management Initial Assess REASON FOR HOSPITALIZATION:: Left Lower Extremity Cellulitis PAST MEDICAL HISTORY/PAST SURGICAL HISTORY:: Medical History. Anxiety and depression. Atypical chest pain. Bicornate uterus. Blood glucose elevated. Dizziness. Fibrocystic breast. Gastritis. GERD (gastroesophageal reflux disease). HLD (hyperlipidemia). HPV (human papilloma virus) infection. genital warts. Hx of abnormal cervical Pap smear. Hypertriglyceridemia. Insomnia. Migraines. Mood disorder. Myalgia. Nexplanon in place. 02/03/2020 previous device removed new device inserted. Obesity. Pilonidal cyst. Sleep apnea. Sore throat. Substance abuse. Opiates & cocaine; in remission since fall 2019. Tobacco use disorder. Surgical History. Arthroplasty of knee ( 12/07/14). Cholecystectomy (02/26/11). I&D, abscess rgt arm PREVIOUS FUNCTIONAL STATUS/SOCIAL/FAMILY SUPPORTS:: Guera recently moved into an apartment in [place] with her 16 year old son. 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 Her son works at [employer], and is identified as a support. She is independent at baseline. CURRENT FUNCTIONAL STATUS:: Guera was lying in bed when CM met with her. She reported that she is very tired today, as she just moved into her new apartment in the last two days. She reported that per provider, Guera will likely be discharged tomorrow with oral antibiotics. She feels confident that her cellulitis is responding well to the current treatment, and is agreeable to the plan. CM will continue to follow. ADVANCE DIRECTIVES:: None on file. CM will offer forms. Has patient been provided with info about the portal/API?: Yes Did the patient sign up for the portal?: Yes (previously) CODE STATUS:: Full Code INSURANCE COVERAGE / FINANCIAL ISSUES:: [employer] CURRENT HOME/COMMUNITY SERVICES/EQUIPMENT:: No current equipment or services. PRIMARY CARE PHYSICIAN:: Diane Dunlap POTENTIAL DISCHARGE NEEDS:: assistant track coach, Follow up appointments, last dose letter. PATIENT/FAMILY EDUCATION NEEDS:: Review discharge instructions regarding activity levels and medications, discussion of self care needs. ANTICIPATED BARRIERS TO DISCHARGE:: None identified. TRANSPORTATION:: Via private vehicle, driven by herself. PLAN:: Anticipate Guera will return home when medically cleared. She will drive herself home when ready, if the provider agrees to her driving. She will follow up with her PCP and discharge plan of care. CM will continue to follow.
[2021-01-11] MEDS: VANCOMYCIN 750 MG in Normal Saline 250 ML 167 MG IVPB (21:54)
[2021-01-12] MEDS: VANCOMYCIN 750 MG in Normal Saline 250 ML 167 MG IVPB (04:34)
[2021-01-12] MEDS: Normal Saline Flush 10 ML SYR IVP (04:34)
[2021-01-12 04:39] VITALS: BP 109/72; PULSE 78; RESP 20; TEMP 37.1; O2SAT 97
[2021-01-12 07:07] VITALS: BP 119/75; PULSE 78; RESP 19; TEMP 36.7; O2SAT 95
[2021-01-12] MEDS: Ibuprofen 600 MG TAB PO (08:54)
[2021-01-12] MEDS: Acetaminophen 325 MG TAB 650 MG PO (08:54)
[2021-01-12] MEDS: Methadone Liquid 10 MG/ML 100 MG PO (08:55)
[2021-01-12] MEDS: Enoxaparin 40 MG/0.4 ML SYR SC (08:55)
[2021-01-12 10:03] LABS: Vancomycin, Trough 15.8 ug/mL (10.0-20.0)
[2021-01-12] MEDS: Gabapentin 300 MG CAP PO (10:37)
[2021-01-12 10:43] LABS: C-Reactive Protein 6.16 mg/dL (0.0-0.3)
--- NOTE | 2021-01-12 10:57 | W.PM.DS.N ---
Date of service: 01/12/21 Time of Service: 10:57 DS: Diagnosis Discharge Diagnosis (1) Swelling of right upper extremity: Status: Acute (2) Cellulitis of left leg without foot: Status: Acute (3) Active intravenous drug use: Status: Chronic (4) Opioid dependence: Status: Chronic Discharge Plan Disposition Patient Disposition: HOME Condition: Stable Discharge Details Reason For Visit: LEFT LOWER EXTREMITY CELLULITIS Admit Date/Time: 01/10/21 23:10 Admit Provider: Gene Peng Attending Provider: Gene Peng Primary Care Provider: Diane Dunlap Hospital Course Hospital Course: Patient returns to the ED with worsening left lower extremity erythema, pain and swelling. in addition to non compliance with elevation, she was only taking cephalexin bid. she was admitted on vanco and cefazolin with marked improvement in her symptoms with essential complete resolution of erythema on day of discharge. she will be discharge on cephalexin and bactrim as I don't feel she failed treatment. I did discuss with her the importance of elevation and increasing keflex to qid. she verbalizes understanding and will report increased erythema immediately. she declines one more day to ensure oral transition success. 14 more doses of cephalexin called to pharmacy. she will complete one more week. discussed with Dr Meredith [place] Meds and New Rx's Prescriptions: Continued methadone 10 mg tablet 100 mg PO DAILY RF: 0 gabapentin 300 mg capsule 300 mg PO DAILY PRN (Reason: headaches) Qty: 7 RF: 0 Nexplanon 68 mg implant 1 implant SBD ONCE Qty: 1 RF: 0 multivitamin 1 EACH capsule 1 ea PO DAILY RF: 0 sulfamethoxazole-trimethoprim [Bactrim DS] 800-160 mg tablet 1 tab PO BID 7 Days Qty: 14 RF: 0 Changed cephalexin 500 mg tablet 500 mg PO QID 7 Days Qty: 14 RF: 0 Discharge Instructions Instructions: Cellulitis (DC) Additional Instructions: Continue antibiotics for 7 more days, increase cephalexin to four times daily, finish bactrim twice daily. push fluids to stay well hydrated. Stand Alone Forms: Nursing Discharge Form Referrals: Diane Dunlap [Primary Care Provider] - Activity:: Activity as Tolerated Equipment/Supplies:: No Equipment Needed Diet:: As Tolerated Discharge Orders Discharge Orders: Discharge Order (Routine); Ordered 01/12/21 Ordered By: Citlaly Phelps DS: Summary Time Spent with Patient providing and/or coordinating discharge services: Less than 30 minutes Status at Discharge Functional status at discharge: independent ambulation Overall status at discharge: patient is progressing back to baseline Mental Status: mental status grossly normal Speech and Movement: speech and movement normal Mood: congruent mood Affect: normal affect Exam Const General: cooperative and no acute distress Nutritional Appearance: overweight Orientation: alert, awake and oriented x3 Chest Chest: normal inspection of the chest Resp Effort & Inspection: normal respiratory effort Cardio Rate: regular rate Rhythm: regular rhythm Skin Rashes: other (essential resolved, small area lateral distal thigh well within markings.) Neuro General: patient alert, patient awake and patient oriented x3 Extrem Left lower extremity: edema (trace) Psych Mental Status: mental status grossly normal Speech and Movement: speech and movement normal Mood: congruent mood Affect: normal affect DS: Data Vitals/I&O Vitals and I&O: Vital Signs Temperature 36.7 C 01/12/21 07:07 Temperature Source Tympanic 01/12/21 07:07 Pulse 78 01/12/21 07:07 Pulse Rhythm Regular 01/12/21 09:00 Respiratory Rate 19 01/12/21 07:07 Respiratory Effort Non-Labored 01/12/21 09:00 Respiratory Depth Normal 01/12/21 09:00 Respiratory Pattern Normal 01/12/21 09:00 Blood Pressure 119/75 01/12/21 07:07 Blood Pressure Position Sitting 01/10/21 21:45 Pulse Oximetry 95 01/12/21 07:07 Oxygen Delivery Method Room Air 01/12/21 07:07 Oxygen Flow Rate 0 01/12/21 07:07 Pain Level 2 01/12/21 08:54 Intake & Output 01/11/21 01/11/21 01/12/21 11:59 23:59 11:59 Intake Total 600 / 1540 940 / 1540 700 / 700 Output Total 300 / 800 500 / 800 2500 / 2500 Balance 300 / 740 440 / 740 -1800 / -1800 Weight 80.4 kg 78.9 kg Intake: IV 600 / 1300 700 / 1300 100 / 100 Oral 240 / 240 600 / 600 Output: Urine 300 / 800 500 / 800 2500 / 2500 Other: Urine Color Yellow Yellow Yellow Urine Appearance Clear Clear Clear Urine Odor None Stool Size Large Stool Characteristics Formed Brown Voiding Methods Toilet Toilet Toilet Data Completed and Pending Labs on day of discharge: Labs from last 24 hours 01/12/21 01/12/21 09:38 09:38 C-Reactive Protein 6.16 H Vancomycin Trough 15.8 Preliminary micro results at discharge 01/10/21 22:45 Blood Culture - Preliminary Blood NO GROWTH 24 HOURS 01/10/21 22:15 Blood Culture - Preliminary Blood NO GROWTH 24 HOURS PFSH Medical History Anxiety and depression Atypical chest pain Bicornate uterus Blood glucose elevated Dizziness Fibrocystic breast Gastritis GERD (gastroesophageal reflux disease) HLD (hyperlipidemia) HPV (human papilloma virus) infection genital warts Hx of abnormal cervical Pap smear Hypertriglyceridemia Insomnia Migraines Mood disorder Myalgia Nexplanon in place 02/03/2020 previous device removed new device inserted. Obesity Pilonidal cyst Sleep apnea Sore throat Substance abuse Opiates & cocaine; in remission since fall 2019 Tobacco use disorder Surgical History Arthroplasty of knee (12/07/14) Cholecystectomy (02/26/11) I&D, abscess rgt arm Family History Mother Substance abuse Meth Mental disorder Depression, anxiety, & PTSD Neoplasm Cervical, lung and rectal CA Father Substance abuse EtOH Heart disease Afib Son Mental disorder Depression Grandmother Neoplasm Breast CA dx'ed 50s Social History Smoking/Tobacco Use Status: Current every day Tobacco Type: cigarettes Smoking risk assessment performed?: Yes Alcohol Intake: never Drug use: Occasionally Substance use type: crack/cocaine Household members: children Housing: apartment Pets and animals: Yes Pets and animals: dog(s) What type of physical activity do you participate in: walking Seatbelt use: always Do you feel safe at home: Yes Do you feel safe in your relationship?: Yes History History 1 Para 1 Hx # Term Pregnancies Multiple births Hx # Pregnancies Ectopic pregnancies AB induced Hx Number of Living Children AB spontaneous
--- NOTE | 2021-01-12 12:56 | CMDISCH_ITS ---
- If Service Date Differs Date of service: 01/12/21 Time of Service: 12:56 LACE Index Scoring Tool - Questions: Length of Stay (in days): 2 Acuity (Admit via E.D.?): Yes E.D. Visits: 4 - Answers: Total Score: 9 Risk of Readmission: Low Risk Care Management Discharge Reason for Hospitalization: Left Lower Extremity Cellulitis Discharge Plan: Guera was discharged home today with no services. KRYSTINA wrote a last dose letter and provided it to Guera, for her to bring to [facility] for her next dose of Methadone. Guera drove herself home via private vehicle. She will follow up with her PCP and discharge plan of care. Patient/Family Education Needs: Review discharge instructions regarding activity levels and medications, discussion of self care needs including ask me three.
== END 2021-01-12 11:40 | disposition home or self-care (01) | DRG 603 ==
LOC: ER 23:54 → MS 23:56
PROVIDERS: Internal Medicine; Nurse Practitioner Acute Care; Admitting Provider Family Medicine; Emergency Provider Registered Nurse Emergency; PCP Nurse Practitioner Family; Visit Provider Family Medicine
DX: L03.116 Cellulitis of left lower limb (principal); F11.20 Opioid dependence, uncomplicated; F41.8 Other specified anxiety disorders; K29.70 Gastritis, unspecified, without bleeding; K21.9 Gastro-esophageal reflux disease without esophagitis; G47.00 Insomnia, unspecified; G43.909 Migraine, unspecified, not intractable, without status migrainosus; F39 Unspecified mood [affective] disorder; M79.10 Myalgia, unspecified site; E66.9 Obesity, unspecified; G47.30 Sleep apnea, unspecified; F17.210 Nicotine dependence, cigarettes, uncomplicated; F14.10 Cocaine abuse, uncomplicated; F19.10 Other psychoactive substance abuse, uncomplicated; M79.89 Other specified soft tissue disorders; Z20.822 Contact with and (suspected) exposure to COVID-19; Q51.3 Bicornate uterus; Z86.718 Personal history of other venous thrombosis and embolism
CPT/HCPCS: 36415; 80053; 80307; 87040; 87635; 96361; 96365; 96375; 99222; 99233; 99238; 99285; J1650; 80202; 81003; 81025; 83605; 83735; 85025; 86140; 93971; J0690; J3490

== ENCOUNTER 2021-03-16 11:34 | Outpatient (CLI) | payer MEDICAID, SELFPAY ==
--- NOTE | 2021-03-16 11:08 | DI.RAD_ITS ---
Exam(s) XR LUMBAR SPINE COMPLETE EXAM: XR LUMBAR SPINE COMPLETE CLINICAL HISTORY: LOW BACK PAIN, M54.5. TECHNIQUE: 2D digital imaging was performed. COMPARISON: No exams were available for comparison FINDINGS: BONES: No fracture or destructive lesion. Vertebral bodies are unremarkable. DISKS: Intervertebral disc spaces are maintained in the lumbar region.. Disc spurring at T11-12. ALIGNMENT: Lumbar spinal alignment is within normal limits. SOFT TISSUE: Normal bowel gas pattern. Cholecystectomy clips right upper quadrant. IMPRESSION: Unremarkable radiographs of the lumbar spine. DATA REPOSITORY: RADIATION DOSE DELIVERED:
== END 2021-03-16 11:54 ==
PROVIDERS: PCP Nurse Practitioner Family; Visit Provider Physician Assistant Medical
DX: M54.5 Low back pain (principal)
CPT/HCPCS: 72110

== ENCOUNTER 2021-06-05 20:55 | Outpatient (REF) | payer MEDICAID, SELFPAY | END 2021-06-05 20:56 | disposition home or self-care (01) | LOC: LBN 20:55 | PROVIDERS: PCP Nurse Practitioner Family; Visit Provider Family Medicine | DX: R35.0 Frequency of micturition (principal) | CPT/HCPCS: 87086 ==

== ENCOUNTER 2021-07-03 11:19 | Outpatient (REF) | payer MEDICAID, SELFPAY ==
--- NOTE | 2021-07-03 10:00 | PAPFT_PTH ---
PATIENT: Guera Lorenz LOC: [facility] U#:[id number] AGE/SX: 36/F ROOM: RE07/03/[address]: NILES Daley : 1985 BED: DIS: 07/03/2021 SPEC #: [id number] RECD: 07/03/21 13:02 STATUS: WAYNE REAdan #: [id number] ELOY: 07/03/21 10:[address]: Rose Marie Leiva DEPT: [facility] Cytology RECD BY: Maria A Doss ENTERED: 07/03/21 13:02 SP TYPE: PAPFT OTHR DR: Diane Dunlap Tissues: 1 - CX/ENDOCX FOR PAP SMEARS Procedures: PAP THIN PREP/UVM Screening HPV DNA PROBE Comments: [id number]
[2021-07-05 15:00] LABS: Chlamydia Result Negative (Negative); GC Result Negative (Negative)
== END 2021-07-03 11:20 | disposition home or self-care (01) ==
LOC: LBN 11:19
PROVIDERS: PCP Nurse Practitioner Family; Visit Provider Nurse Practitioner Family
DX: Z11.3 Encounter for screening for infections with a predominantly sexual mode of transmission (principal); Z12.4 Encounter for screening for malignant neoplasm of cervix; Z87.42 Personal history of other diseases of the female genital tract; Z11.51 Encounter for screening for human papillomavirus (HPV); R87.610 Atypical squamous cells of undetermined significance on cytologic smear of cervix (ASC-US); B97.7 Papillomavirus as the cause of diseases classified elsewhere
CPT/HCPCS: 87491; 87591; 88142; 87624

== ENCOUNTER 2021-07-13 21:33 | Outpatient (REF) | payer MEDICAID, SELFPAY ==
[2021-07-15 11:44] LABS: COVID-19 RT-PCR UVMMC Result Negative (Negative)
== END 2021-07-13 21:34 | disposition home or self-care (01) ==
LOC: NCHCN 21:33
PROVIDERS: PCP Nurse Practitioner Family; Visit Provider Family Medicine
DX: Z20.822 Contact with and (suspected) exposure to COVID-19 (principal); J06.9 Acute upper respiratory infection, unspecified
CPT/HCPCS: U0003

== ENCOUNTER 2021-08-22 11:39 | Outpatient (REF) | payer MEDICAID, SELFPAY ==
--- NOTE | 2021-08-22 10:00 | ENDO_PTH ---
PATIENT: Guera Lorenz LOC: [facility] U#:[id number] AGE/SX: 36/F ROOM: RE08/22/[address]: Jessica Aguirre DO : 1985 BED: DIS: 08/22/2021 SPEC #: [id number] RECD: 08/22/21 12:16 STATUS: WAYNE REQ #: [id number] ELOY: 08/22/21 10:[address]: Jessica Aguirre DEPT: Surgical Specimen RECD BY: Maria A Doss ENTERED: 08/22/21 12:17 SP TYPE: Endo OTHR DR: Diane Dunlap Tissues: 1 - ENDOCERVICAL BX/CURRETTE 2 - CERVICAL BIOPSY Procedures: GROSS AND MICRO LEVEL 4 Comments: [id number]
== END 2021-08-22 11:40 | disposition home or self-care (01) ==
LOC: LBN 11:39
PROVIDERS: PCP Nurse Practitioner Family; Visit Provider Obstetrics & Gynecology
DX: N72 Inflammatory disease of cervix uteri (principal); N87.9 Dysplasia of cervix uteri, unspecified
CPT/HCPCS: 88305

== ENCOUNTER → 2022-03-08 17:24 | Outpatient (CLI) | payer MEDICAID, SELFPAY ==
--- NOTE | 2022-03-08 | DI.RAD_ITS ---
Exam(s) XR CHEST 2V PA LATERAL EXAM: XR CHEST 2V PA LATERAL CLINICAL HISTORY: r/o pneumonia TECHNIQUE: 2D digital imaging was performed of the chest. Two images were obtained. PA and lateral views were obtained. COMPARISON: CR XR CHEST 2V PA LATERAL from 07/10/2018 FINDINGS: MEDIASTINUM: Normal. HEART: Normal. PULMONARY VASCULATURE: Normal. LUNGS: Clear. Stable scarring in the right lung base. PLEURAL SPACE: No pleural effusion or pneumothorax. BONE:Within normal limits for the patient's age. OTHER FINDINGS:Normal. IMPRESSION: No acute pulmonary findings. DATA REPOSITORY: RADIATION DOSE DELIVERED:
--- NOTE | 2022-03-08 18:22 | DI.VRAD_ITS ---
PROCEDURE INFORMATION: Exam: XR Chest Exam date and time: 03/08/2022 5:53 PM Age: 37 years old Clinical indication: Other: R/O pneumonia TECHNIQUE: Imaging protocol: XR of the chest. Views: 2 views. COMPARISON: CR XR CHEST 2V PA LATERAL 07/10/2018 8:37 AM FINDINGS: Lungs: Unremarkable. No consolidation. Minor linear scar in the right lower lung field stable since previous study 4 years ago. Pleural spaces: Unremarkable. No pleural effusion. No pneumothorax. Heart/Mediastinum: Unremarkable. No cardiomegaly. Bones/joints: Unremarkable. IMPRESSION: 1. No acute findings. 2. No acute infiltrates or edema. 3. No pleural effusions. 4. Stable exam since 07/10/2018. Dictated and Authenticated by: Juancarlos Jimenez MD. Ordering:MISSY Mora MD
== END ==
PROVIDERS: PCP Nurse Practitioner Family; Visit Provider Physician Assistant
DX: R06.02 Shortness of breath (principal); J98.4 Other disorders of lung
CPT/HCPCS: 71046

== ENCOUNTER 2025-02-05 01:47 | Outpatient (CLI) | payer OTHER, SELFPAY ==
--- NOTE | 2025-02-05 | DI.MAMMO_ITS ---
Exam(s) MAMMO SCREENING EXAM: MAMMO SCREENING CLINICAL HISTORY: SCREENING, Z12.31,BASELINE TECHNIQUE: Mammograms were interpreted according to the usual protocol including computer analysis w ith CAD system, tomosynthesis and C-view imaging. COMPARISON: No exams were available for comparison. Baseline examination. FINDINGS: The breasts are composed of scattered fibroglandular densities, Breast Density category B. No suspicious masses or suspicious microcalcifications are seen. No skin thickening or abnormal axillary lymph nodes are seen. IMPRESSION: BI-RADS Category 1, Negative mammogram Yearly screening mammography is recommended. Breast Density - Category B, scattered fibroglandular densities. Breast density Category C or D implies that the patient has dense breast tissue. Dense breast tissue can make it harder to find cancer on a mammogram. Dense breast tissue is also associated with an incr eased risk of breast cancer. This information about the result of the mammogram report was provided to the patient to raise their awareness. Use this report when you speak with the patient about their risks for breast cancer, which includes their family history. At that time, you may recommend additional screening tests (Ultrasoun d or MRI) as these tests may add significant information. A negative radiographic report should not delay biopsy if a dominant or clinically suspicious mass is present. Up to ten percent of cancers are not identified on mammography. A negative report may reinforce clinical impression. Adenosis and dense breasts may obscure an underlying neoplasm. False positive reports average 6 to 10%. Patient will receive a letter notifying them of these results.
== END 2025-02-05 02:07 ==
PROVIDERS: PCP Nurse Practitioner Family; Visit Provider Nurse Practitioner Family
DX: Z12.31 Encounter for screening mammogram for malignant neoplasm of breast (principal); R92.323 Mammographic fibroglandular density, bilateral breasts
CPT/HCPCS: 77063; 77067